=== PATIENT | male | born 1965 | race Caucasian/White ===

== ENCOUNTER 2019-11-08 07:20 | Emergency (ER) | payer OTHER, SELFPAY ==
--- NOTE | ~2019-11-08 | XR_ITS ---
EXAMINATION: XR chest 2V DATE: 11/08/2019 08:05 INDICATION: Chest pain TECHNIQUE: PA and lateral views of the chest are obtained. COMPARISON: 06/12/2017 FINDINGS: The lungs are free of acute opacities. There is no pleural effusion or pneumothorax. The ca rdiomediastinal silhouette is normal. There is mild thoracic spondylosis. Calcified pulmonary nodules and calcified right hilar lymph nodes are consistent with old granulomatous disease. IMPRESSION: 1. No acute cardiopulmonary abnormality. Reviewed, dictated and finalized at location A. 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
[2019-11-08 07:23] VITALS: BP 136/82; PULSE 51; RESP 19; TEMP 36.7; O2SAT 100
[2019-11-08 07:29] VITALS: O2SAT 100
--- NOTE | 2019-11-08 07:34 | ECG_ITS ---
Measurements Intervals [place] Rate: 54 P: 60 KS: 197 QRS: 30 QRSD: 113 T: 23 QT: 401 QTc: 381 Interpretive Statements SINUS BRADYCARDIA WITH SINUS ARRHYTHMIA INTRAVENTRICULAR CONDUCTION DELAY DELAYED PRECORDIAL R/S TRANSITION BASELINE ARTIFACT- I, II, III BORDERLINE ECG Electronically Signed On 11-08-2019 8:01:55 INSTRUMENT CHECKER by Yves Carrera D.O.
[2019-11-08 07:44] LABS: Basophils Absolute Auto 0.1 K/mm3 (0.0-0.1); Eosinophils Absolute Auto 0.3 K/mm3 (0-0.3); Eosinophils Percent Auto 3.6 % (0-4.4); Hematocrit 45.2 % (42.0-52.0); Hemoglobin 14.9 g/dL (14.0-18.0); Immature Granulocyte Absolute 0.05 K/mm3 (0.00-0.031); Immature Granulocyte Percent A 0.7 % (0-0.5); Lymphocytes Absolute Auto 3.19 K/mm3 (0.9-3.2); Lymphocytes Percent Auto 44.6 % (18.3-44.2); Mean Corpuscular Hemoglobin 30.8 pg (26-34); Mean Corpuscular Volume 93.6 fl (80-100); Mean Platelet Volume 8.8 fl (7.4-10.4); Monocytes Absolute Auto 0.7 K/mm3 (0.1-0.6); Monocytes Percent Auto 9.5 % (2.6-8.5); Neutrophils Absolute Auto 2.9 K/mm3 (1.3-6.7); Neutrophils Percent Auto 40.6 % (45.5-73.1); Platelet Count Result 358 k/mm3 (150-375); Red Blood Count 4.83 M/mm3 (4.6-6.20); Red Cell Distribution Width 12.5 % (11.5-14.5); White Blood Count 7.2 K/mm3 (4.5-10.0)
[2019-11-08 07:46] VITALS: BP 135/89; PULSE 51; RESP 13; O2SAT 97
[2019-11-08 07:55] LABS: INR 0.9
[2019-11-08 07:56] LABS: Partial Thromboplastin Time 28.6 SECONDS (22.3-36.8)
--- NOTE | 2019-11-08 08:04 | PC.NURSE ---
redraw sent to lab
--- NOTE | 2019-11-08 08:15 | ED.CHESTPAIN ---
HPI - Chest Pain General Chief Complaint: Chest Pain Stated Complaint: cp Time Seen by Provider: 11/08/19 07:44 Source: patient and RN notes reviewed Mode of arrival: ambulatory Limitations: no limitations History of Present Illness HPI narrative: Pt is a 53 y/o male with a Hx of angina and GERD, who presents to the ED with c/o lt sided chest pain starting around 6:30 AM this morning. He notes that he has had intermittent pain in the lt side of his chest for several weeks, stating that he was unable to perform a scheduled stress test 3 weeks ago due to his pain. Pt notes that he woke up around 6:30 AM this morning with pain in the lt side of his chest as well as severe posterior neck pain. He notes that he does have a Hx of several cervical spine fusions. He describes his chest pain as burning, and states that his pain radiated down his lt arm. Pt notes that he became nauseas and mildly short of breath shortly after his pain began. He currently rates his neck pain at 9/10, but notes that his chest pain is slightly alleviated currently. Pt states that he was scheduled to see his Fine Patcher at [facility] later this morning, but chose to come to the ED due to him not feeling well. MD complaint: chest pain Onset (ago): hour(s) (1.5) Onset: during rest Pain location: left chest Pain radiation: left arm Quality: burning Associated symptoms: nausea, dyspnea and other (posterior neck pain) Related Data Allergies Allergy/AdvReac Type Severity Reaction Status Date / Time No Known Allergies Allergy Verified 11/08/19 07:28 Review of Systems Review of Systems: Narrative: CONSTITUTIONAL: Denies fever, chills, or sweats. CARDIOVASCULAR: Reports lt sided chest pain radiating down lt arm. Denies palpitations or edema. RESPIRATORY: Denies cough. Reports dyspnea. GASTROINTESTINAL: Denies abdominal pain, vomiting, or diarrhea. Reports nausea. MUSCULOSKELETAL: Denies joint pain or myalgia. Reports posterior neck pain. All systems reviewed & are unremarkable except as noted in HPI and below PMFSH Past Medical History Medical History GERD (gastroesophageal reflux disease) History of angina HTN (hypertension) Inguinal hernia Neck pain Surgical History Surgical History Hx of fusion of cervical spine Hx of inguinal hernia repair Hx of repair of rotator cuff bilateral shoulders Social History Social History (Updated 11/08/19 @ 08:58 by Everette Collier) Smoking status: Former smoker Gender identity (if verbalized by the patient): Male Exam Narrative: Exam Narrative: GENERAL: Well-appearing, well-nourished, and in no acute distress. HEAD: Normocephalic, atraumatic. EYES: PERRLA and EOMI. ENT: Nares clear, no rhinorrhea or epistaxis. Mucous membranes moist. NECK: Supple. CHEST: Clear to auscultation. No respiratory distress. Reproducible pain over lt chest wall. HEART: Regular rate and rhythm. No murmur heard. Normal peripheral pulses. ABDOMEN: Soft, nontender, nondistended, normal active bowel sounds. EXTREMITIES: Normal range of motion. No edema. SKIN: Warm, dry, no rash. NEURO: No focal deficits. Alert and oriented. Course Consultations Consultation #1: Discussed case with internal control specialist on-call at [facility], Dr. Mckeon. Advised that if the second troponin is negative, he can follow-up as outpatient. He has a stress test scheduled. Date: 11/08/19 Time: 11:13 Vital Signs Vital signs: Vital Signs Temperature 36.7 C 11/08/19 07:23 Pulse Rate 51 L 11/08/19 07:23 Respiratory Rate 19 11/08/19 07:23 Blood Pressure 136/82 11/08/19 07:23 Pulse Oximetry 100 11/08/19 07:23 Temperature 36.7 C 11/08/19 07:23 Pulse Rate 51 L 11/08/19 07:46 Respiratory Rate 16 11/08/19 09:31 Blood Pressure 126/98 H 11/08/19 09:31 Pulse Oximetry 98 11/08/19 09:31 MDM - Chest Pain MDM Narrative Medical decision making narrat
[2019-11-08 08:19] LABS: Blood Urea Nitrogen 17 mg/dL (9-20); Calcium 9.2 mg/dL (8.4-10.2); Carbon Dioxide 27 mmol/L (22-30); Chloride 100 mmol/L (98-107); Estimated Glomerular Filt Rate > 60; Glucose 96 mg/dL (75-110); Potassium 3.9 mmol/L (3.4-5.0); Sodium 136 mmol/L (137-145)
[2019-11-08 08:30] LABS: Troponin I < 0.012 ng/mL (0.000-0.034)
[2019-11-08 08:56] VITALS: BP 132/48; RESP 47; O2SAT 99
[2019-11-08 09:31] VITALS: BP 126/98; RESP 16; O2SAT 98
[2019-11-08 11:36] LABS: Troponin I < 0.012 ng/mL (0.000-0.034)
[2019-11-08 11:56] VITALS: BP 133/97; PULSE 53; RESP 15; O2SAT 97
== END 2019-11-08 11:58 | disposition home or self-care (01) ==
PROVIDERS: Emergency Provider Emergency Medicine; PCP Family Medicine
DX: R07.89 Other chest pain (principal); K21.9 Gastro-esophageal reflux disease without esophagitis; I10 Essential (primary) hypertension; Z87.891 Personal history of nicotine dependence; R00.1 Bradycardia, unspecified; I45.9 Conduction disorder, unspecified
CPT/HCPCS: 36415; 71046; 80048; 84484; 85025; 85610; 85730; 93005; 99284

== ENCOUNTER → 2019-11-16 11:56 | Outpatient (CLI) | payer MEDICARE, MEDICAID, SELFPAY ==
--- NOTE | ~2019-11-16 | XR_ITS ---
XR chest 2V DATE: 11/16/2019 12:26 INDICATION: Right chest pain TECHNIQUE: 2 views COMPARISON: 11/08/2019 PA and lateral chest FINDINGS: Postoperative change from anterior and posterior cervical spine surgical fusion. Normal heart size. There are calcified right hilar nodes consistent with old pulmonary granulomatous disease. No pulmonary infiltrate or consolidation, pleural effusion or pulmonary vascular congestion or pneumothorax is detected. Diffuse idiopathic skeletal hyperostosis of the thoracic spine. Moderate osteopenia. IMPRESSION: No active cardiopulmonary disease Reviewed, dictated and finalized at location B. 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
== END ==
PROVIDERS: PCP Family Medicine; Visit Provider Family Medicine
DX: R09.1 Pleurisy (principal)
CPT/HCPCS: 71046

== ENCOUNTER → 2019-12-20 11:12 | Outpatient (CLI) | payer MEDICARE, MEDICAID, SELFPAY ==
--- NOTE | ~2019-12-20 | XR_ITS ---
EXAMINATION: XR chest 2V 12/20/2019 11:30 INDICATION: Productive cough PROCEDURE: 2 view chest COMPARISON: Comparison to multiple prior studies sequentially, with oldest reviewed study dated 05/24. FINDINGS: The lungs are clear. The cardiomediastinal silhouette is within normal limits. There are no pleural effusions. There is no pneumothorax suspected. IMPRESSION: 1: NO ACUTE CARDIOPULMONARY DISEASE. Reviewed, dictated and finalized at location A.
== END ==
PROVIDERS: PCP Family Medicine; Visit Provider Family Medicine
DX: J20.9 Acute bronchitis, unspecified (principal)
CPT/HCPCS: 71046

== ENCOUNTER 2020-04-27 17:11 | Outpatient (CLI) | payer MEDICARE, MEDICAID, SELFPAY ==
--- NOTE | ~2020-04-27 | XR_ITS ---
XR shoulder LT min 2V DATE: 04/27/2020 17:35 INDICATION: Bilateral posterior shoulder pain, radiating down arm TECHNIQUE: 4 views COMPARISON: None FINDINGS: Anterior and posterior cervical spine surgical fusion is noted. Degenerative spurring of th e thoracic spine. No fracture, dislocation, periosteal reaction or bone destruction or abnormal soft tissue calcificati on of the left shoulder. IMPRESSION: No significant abnormality of the left shoulder Reviewed, dictated and finalized at location A.
--- NOTE | ~2020-04-27 | XR_ITS ---
XR shoulder RT min 2V DATE: 04/27/2020 17:35 INDICATION: Bilateral posterior shoulder pain, radiating down the arms. TECHNIQUE: 4 views COMPARISON: None FINDINGS: No fracture, dislocation, periosteal reaction or bone destruction. Anterior and posterior surgical fusion of the cervical spine is incidentally noted, as well as calcif ied right hilar nodes. There is degenerative spurring of the thoracic spine. IMPRESSION: No significant abnormality of the right shoulder Anterior and posterior surgical fusion of the cervical spine, degenerative changes of thoracic spine Reviewed, dictated and finalized at location A. IMPRESSION: No significant abnormality of the right shoulder Anterior and posterior surgical fusion of the cervical spine, degenerative valle ges of thoracic spine
== END 2020-04-27 17:12 | disposition home or self-care (01) ==
LOC: ANHIMG 17:15
PROVIDERS: PCP Family Medicine; Visit Provider Nurse Practitioner Adult Health
DX: M25.511 Pain in right shoulder (principal); M25.512 Pain in left shoulder; Z98.1 Arthrodesis status
CPT/HCPCS: 73030

== ENCOUNTER 2020-04-28 07:44 | Outpatient (CLI) | payer MEDICARE, MEDICAID, SELFPAY ==
--- NOTE | ~2020-04-28 | MR_ITS ---
EXAMINATION: MR shoulder LT wo con DATE: 04/28/2020 08:41 INDICATION: Left shoulder pain. TECHNIQUE: Magnetic resonance imaging (MRI) of the left shoulder was performed without intravenous co ntrast. Sequences included axial PD-weighted FS FSE, coronal oblique PD-weighted FS FSE and T2-weight ed FS FSE, and sagittal oblique T2-weighted FS FSE and T1-weighted FSE. COMPARISON: Left shoulder radiographs 04/27/2020 FINDINGS: Coracoacromial arch: The acromion undersurface is curved in morphology (type II). There is moderate acromioclavicular join t osteoarthritis including inferiorly directed osteophytes. There is moderate subacromial/subdeltoid bursitis. Rotator cuff: There is a full-thickness tear of supraspinatus tendon measuring 4 mm anterior to posterior by 7 mm p roximal to distal. There is severe supraspinatus and infraspinatus tendinopathy. There is a small art icular sided partial-thickness tear of infraspinatus tendon at its distal insertion. Teres minor tend on is normal. There is mild subscapularis tendinopathy. There is no asymmetric fatty atrophy of the r otator cuff muscle bellies. Biceps tendon and glenoid labrum: Biceps tendon is in bicipital groove. There is a complete tear of proximal biceps tendon. There is de generation of the glenoid labrum without well-defined tear. Fluid: There is a small glenohumeral joint effusion. Bones/cartilage: There is cartilage surface irregularity of glenoid and humeral head. There are tiny osteophytes. IMPRESSION: 1. Severe rotator cuff tendinopathy with full-thickness tear of supraspinatus tendon and small articu lar sided partial-thickness tear of infraspinatus tendon. 2. Mild glenohumeral joint chondrosis. 3. Complete tear of proximal biceps tendon. 4. Moderate acromioclavicular joint osteoarthritis. 5. Moderate subacromial/subdeltoid bursitis and small glenohumeral joint effusion. Reviewed, dictated and finalized at location A. IMPRESSION: 1. Severe rotator cuff tendinopathy with full-thickness tear of supraspinatus t endon and small articular sided partial-thickness tear of infraspinatus tendon. 2. Mild glenohumeral joint chondrosis. 3. Complete tear of proximal biceps tendon. 4. Moderate acromioclavicular joint osteoarthritis. 5. Moderate subacromial/subdeltoid bursitis and small glenohumeral joint effusi on.
== END 2020-04-28 07:45 | disposition home or self-care (01) ==
PROVIDERS: PCP Family Medicine; Visit Provider Nurse Practitioner Adult Health
DX: M19.012 Primary osteoarthritis, left shoulder (principal); S46.212A Strain of muscle, fascia and tendon of other parts of biceps, left arm, initial encounter; X58.XXXA Exposure to other specified factors, initial encounter; M25.412 Effusion, left shoulder; M75.52 Bursitis of left shoulder
CPT/HCPCS: 73221

== ENCOUNTER 2020-06-06 16:48 | Outpatient (CLI) | payer MEDICARE, OTHER, MEDICAID, SELFPAY ==
--- NOTE | ~2020-06-06 | XR_ITS ---
EXAMINATION: XR chest 2V 06/06/2020 17:15 INDICATION: Right-sided chest pain PROCEDURE: 2 view chest COMPARISON: Comparison to multiple prior studies sequentially, with oldest reviewed study dated 10/2016. FINDINGS: The lungs are clear. The cardiomediastinal silhouette is within normal limits. There are no pleural effusions. There is no pneumothorax suspected. IMPRESSION: 1: NO ACUTE CARDIOPULMONARY DISEASE. Reviewed, dictated and finalized at location A.
== END 2020-06-06 16:49 | disposition home or self-care (01) ==
PROVIDERS: PCP Family Medicine; Visit Provider Family Medicine
DX: R07.89 Other chest pain (principal)
CPT/HCPCS: 71046

== ENCOUNTER 2020-06-07 10:23 | Outpatient (NON) | payer MEDICARE, OTHER, SELFPAY ==
[2020-06-08 14:10] LABS: SARS-CoV-2 RNA PCR Negative
== END 2020-06-07 10:24 ==
PROVIDERS: PCP Family Medicine; Visit Provider Family Medicine
DX: Z20.828 Contact with and (suspected) exposure to other viral communicable diseases (principal); B34.9 Viral infection, unspecified
CPT/HCPCS: 87635; C9803; U0003

== ENCOUNTER 2020-08-03 16:50 | Outpatient (CLI) | payer MEDICARE, OTHER, SELFPAY ==
--- NOTE | ~2020-08-03 | XR_ITS ---
EXAMINATION: XR chest 2V EXAM DATE: 08/03/2020 17:18 INDICATION: Acute bronchitis, congestion. TECHNIQUE: Frontal and lateral projections of the chest obtained and reviewed. Comparison is made to prior examination from 06/06/2020. FINDINGS: The lungs are clear. There are no pleural effusions. The cardiomediastinal silhouette is within normal limits. There is no pneumothorax suspected. Small to moderate-sized thoracic endplate osteophytes. Cervical fusion hardware. IMPRESSION: No acute cardiopulmonary findings. Reviewed, dictated and finalized at location A.
== END 2020-08-03 16:51 | disposition home or self-care (01) ==
LOC: ANHIMG 16:57
PROVIDERS: PCP Family Medicine; Visit Provider Family Medicine
DX: J20.9 Acute bronchitis, unspecified (principal)
CPT/HCPCS: 71046

== ENCOUNTER 2020-08-04 06:50 | Outpatient (NON) | payer MEDICARE, OTHER, SELFPAY ==
[2020-08-04 18:05] LABS: SARS-CoV-2 RNA PCR Negative
== END 2020-08-04 06:51 ==
LOC: ANHCOVIDDT 06:56
PROVIDERS: PCP Family Medicine; Visit Provider Family Medicine
DX: Z20.828 Contact with and (suspected) exposure to other viral communicable diseases (principal); B34.9 Viral infection, unspecified
CPT/HCPCS: 87635; C9803; U0003

== ENCOUNTER 2020-09-03 07:44 | Outpatient (CLI) | payer MEDICARE, OTHER, SELFPAY ==
--- NOTE | ~2020-09-03 | US_ITS ---
US right upper quadrant INDICATION: Right upper quadrant pain PROCEDURE: Realtime right upper abdominal ultrasound. COMPARISON: No prior studies for comparison. FINDINGS: The pancreas is normal without focal mass or pancreatic ductal dilation. Liver echotexture is normal without focal mass or intrahepatic biliary dilatation. There is normal directional flow i n the portal vein. The gallbladder is normal without stones, gallbladder wall thickening or pericholecystic fluid. Comm on bile duct measures 4.6 mm. No sonographic Garcia's sign. IMPRESSION: 1: Normal limited abdominal ultrasound. Reviewed, dictated and finalized at location A. 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
== END 2020-09-03 07:45 | disposition home or self-care (01) ==
PROVIDERS: PCP Family Medicine; Visit Provider Family Medicine
DX: R10.11 Right upper quadrant pain (principal)
CPT/HCPCS: 76705

== ENCOUNTER 2021-02-15 09:00 | Outpatient (RCR) | payer MEDICARE, OTHER, SELFPAY ==
--- NOTE | 2021-01-18 15:30 | PTOPEVAL ---
PHYSICAL THERAPY EVALUATION Thank you for referring Cristobal Mcpherson to [facility].? Bharath was evaluated with the dx of cervical fusion/pain. The patient is scheduled to be seen for therapy?2 x/week for 4 weeks. Please review, sign, date and return this plan of care HEAVEN. I agree with and certify that the following plan of care is medically necessary. 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 Pt has another MRI for his low back on January 27. Pt had headaches and tavo. shoulder pain prior to recent surgery and since surgery the pain is at neck and to the right scapular area. The patient feels a knot that is painful, at cervical area. The pt use to golf and MD says its ok but is concerned about injurying himself playing. The pt also has a hx of RTC problem on both sides. The pt takes care of the yard and BBQ's at home. Subjective Information The rides a bicycle for Query Text:As Reported By Patient/ exercise approx. 18 miles a Family day and tolerates the ride fairly well. Pain Assessment Timing of Pain Assessment Timing of Pain Assessment Assessment Pain Scale Pain Scale Used Numeric (1 - 10) Self Report Pain Assessment Neck Reported Pain Level 7 Pain Description Burning,Soreness Pain Radiation Right Shoulder Pain Frequency Acute,Chronic Pain Aggravating Factors Lifting Other Pain Aggravating Factors driving, looking down, looking up, turning head Pain Score Pain Score 7: Self Report Interventions Used Interventions Used By Clinicians Education,Manual Therapy Techniques Pain Relief Interventions Used By Ice,Inactivity/Rest Patient
--- NOTE | 2021-01-31 16:48 | PCPTNOTE ---
Patient did not show to appointment. Patient was called and states his wrote the wrong time. Rescheduled for 02/01/21.
--- NOTE | 2021-02-15 09:50 | PTOPEVAL ---
PHYSICAL THERAPY DISCHARGE Thank you for referring Cristobal Mcpherson to [facility].? The patient has completed 9 visits for the dx of cervical fusion. Goals are partially met and skilled PT peaked. DC PT for his neck. Please review, sign, date and return this plan of care. I agree with and certify the following plan of care. Referring Physician Date Referring Provider: MD Chente Narvaez *PT Outpatient Discharge Start: 01/18/21 14:31 Freq: Status: Active Protocol: Document 02/15/21 09:07 MLV (Rec: 02/15/21 09:46 [email or web address] [email or web address]) Therapy Assessment Status Assessment Status Assessment Status Discharge Evaluation Information Problem Diagnosis cervical fusion C3-C4; Oct 29, 2020 Cause no injury Additional Evaluation Detail Patient feels he is much looser than when he started therapy and hasn't had many headaches. Patient is riding his bike regularly and has minimal soreness/stiffness at his neck the next AM. The patient has a follow up with the MD in a while. Patient has no trouble with current HEP. Pt still has trouble sleeping and feels he might need a new pillow. Pain Assessment Timing of Pain Assessment Timing of Pain Assessment Assessment Pain Scale Pain Scale Used Numeric (1 - 10) Self Report Pain Assessment Neck Reported Pain Level 7 Pain Description Soreness,Tightness Pain Frequency Acute,Chronic Pain Aggravating Factors Exercise/Activity,Prolonged Position Pain Behaviors None Pain Score Pain Score 7: Self Report Interventions Used Interventions Used By Clinicians Education,Electrical Stimulation,Exercise,Heat, Manual Therapy Techniques Pain Relief Interventions Used By Exercise,Ice Patient Other Alleviating Interventions ibuprofen Cervical and Lumbar ROM Cervical ROM Cervical Flexion (0-60) 42 Query Text:Active in Degrees Cervical Extension (0-70) 29 Query Text:Active in Degrees Cervical Lateral Flexion Right (0-50) 24 Query Text:Active in Degrees Cervical Lateral Flexion Left (0-50) 30 Query Text:Active in Degrees Cervical Rotation Right (0-90) 62 Query Text:Active in Degrees Cervical Rotation Left (0-90) 49 Query Text
== END 2021-02-21 08:17 | disposition home or self-care (01) ==
LOC: ANHPT 09:00
PROVIDERS: PCP Family Medicine
DX: M47.22 Other spondylosis with radiculopathy, cervical region (principal)
CPT/HCPCS: 97014; 97110; 97140; 97162; G0283

== ENCOUNTER 2021-02-25 13:47 | Emergency (ER) | payer MEDICARE, OTHER, SELFPAY ==
[2021-02-25 13:57] VITALS: BP 126/78; PULSE 58; RESP 18; TEMP 36.2; O2SAT 99
--- NOTE | 2021-02-25 14:06 | ED.SKABFB ---
HPI - Skin/Abscess/Foreign Bdy General Chief complaint: Skin/Abscess/Foreign Body Stated complaint: Insect Bite Time Seen by Provider: 02/25/21 14:07 Source: patient and RN notes reviewed Mode of arrival: ambulatory Limitations: no limitations History of Present Illness HPI narrative: 55-year-old male presents with concern for possible insect bite. Reports he noticed a bump on his chest after a bike ride this morning. The bump was not there last night when he showered. Reports the bump is mildly tender to touch, denies itching. Denies known insect bite or injury. Denies surrounding redness, swelling. Reports small amount of itching on his right lower back, denies other rash. MD complaint: insect bite/sting Related Data Home Medications Medication Instructions Recorded Confirmed albuterol 02/25/21 amlodipine 02/25/21 amlodipine 02/25/21 montelukast mg 02/25/21 omeprazole 02/25/21 tamsulosin mg PO 02/25/21 tizanidine mg 02/25/21 valsartan 02/25/21 Allergies Allergy/AdvReac Type Severity Reaction Status Date / Time No Known Allergies Allergy Verified 02/25/21 14:11 Review of Systems Review of Systems: Narrative: CONSTITUTIONAL: Denies malaise, chills, sweats, or fever. EYES: Denies visual changes, redness, or discharge. ENT: Denies swollen lips, swollen tongue, trouble swallowing CARDIOVASCULAR: Denies chest pain, palpitations, or edema. RESPIRATORY: Denies cough or dyspnea. GASTROINTESTINAL: Denies abdominal pain, nausea, vomiting SKIN: Reports a red bump on his right-sided chest MUSCULOSKELETAL: Denies myalgia. All systems reviewed & are unremarkable except as noted in HPI and below [facility] Past Medical History Medical History (Updated 02/25/21 @ 14:15 by Rachel Nicole NP) GERD (gastroesophageal reflux disease) History of angina HTN (hypertension) Inguinal hernia Neck pain Surgical History Surgical History Hx of fusion of cervical spine Hx of inguinal hernia repair Hx of repair of rotator cuff bilateral shoulders Social History Social History (Updated 11/08/19 @ 08:58 by Everette Collier) Smoking status: Former smoker Gender identity (if verbalized by the patient): Male Comments At time of signature, agree with nursing past medical, surgical, social and family history. There is no relevant family history pertinent to the presenting complaint Exam Narrative: Exam Narrative: GENERAL: Well-appearing, well-nourished, and in no acute distress. HEAD: Normocephalic, atraumatic. EYES: PERRLA, conjunctivae clear, and EOMI. ENT: Mucous membranes moist. Oropharynx without edema, erythema or lesions. NECK: Supple. No lymphadenopathy CHEST: Clear to auscultation. No respiratory distress. HEART: Regular rate and rhythm. SKIN: Warm, dry. 3 cm mildly erythematous soft wheal noted to the right upper chest, no surrounding erythema, induration, edema. No other rash noted NEURO: Alert and oriented x3. PSYCH: Normal mood and affect Course Course Emergency Course: Patient is aware of diagnosis, understands and agrees to treatment plan. Anticipatory guidance given. Patient agrees to follow-up as directed and is aware of reasons to seek care at the emergency department. Portions of this record may have been created with voice recognition software Vital Signs Vital signs: Reviewed. MDM - Skin/Abscess/Foreign Bdy MDM Narrative Medical decision making narrative: Exam findings show no acute concerns or changes; patient is non-toxic appearing and is in no distress. Patient is appropriate for outpatient treatment and follow-up. Differential Diagnosis Differential diagnosis: Likely abscess of skin or subcutaneous tissue, cellulitis, insect bites, impetigo and contact dermatitis Critical Care Time Critical Care Time Critical Care Time: No Discharge Plan Discharge Clinical Impression: Localized skin eruption Patient Disposition: Home, S
== END 2021-02-25 14:19 | disposition home or self-care (01) ==
PROVIDERS: Emergency Provider Nurse Practitioner; PCP Family Medicine
DX: R21 Rash and other nonspecific skin eruption (principal); K21.9 Gastro-esophageal reflux disease without esophagitis; I10 Essential (primary) hypertension; I25.10 Atherosclerotic heart disease of native coronary artery without angina pectoris; Z87.891 Personal history of nicotine dependence
CPT/HCPCS: 99213; G0463

== ENCOUNTER 2021-03-28 09:30 | Outpatient (RCR) | payer MEDICARE, OTHER, SELFPAY ==
--- NOTE | 2021-02-22 13:45 | PTOPEVAL ---
PHYSICAL THERAPY EVALUATION AND PLAN OF CARE Thank you for referring Cristobal Mcpherson to [facility] for treatment of chronic low back pain.? The patient is scheduled to be seen for therapy? 2xx/week for 4-8 weeks. Please review, sign, date and return this plan of care HEAVEN. I agree with and certify that the following plan of care is medically necessary. Referring Physician Date Referring Provider: Tim Hawk MD Ray Evaluation Outpatient Past Medical History Cardiovascular History Hx Hypercholesterolemia Yes Hx Hypertension Yes Respiratory History Hx Asthma Yes Hx Chronic Obstructive Pulmonary Disease Yes (COPD) Gastrointestinal History Hx Hernia Yes Musculoskeletal History Hx Arthritis Yes Hx Spinal Surgery Yes: cervical fusion 12/25, repair of cervical fusion 02/26 ; Diagnosis lumbar spine pain; spondylosis Onset 2016 Subjective Information Reports a chronic history of Query Text:As Reported By Patient/ back pain since 2016. he has Family been working on exercises and trying to lose weight to help his back, but notes that he now experiencing numbness and tingling in the right leg down to the foot that occurs especially when driving for prolonged periods or in both feet when riding his back. Also states that he is experiencing right hip pain. As for the back specifically he reports constant pain that worsens depending on activity. He is trying to avoid surgery and is open to trying to make symptoms improve. of note: patient was recently discharged from therapy for rehabilitation after cervical fusion Self Report Pain Assessment Bilateral Spine, Lumbar Reported Pain Level 6 Pain Description Aching,Burning Pain Frequency Chronic,Continuous Greatest Pain Intensity 9 Pain Aggravating Factors Exercise/Activity,Lifting, Sitting,Walking,Weight Bearing /Standing Pain Behaviors Guarding Pain Score Pain Score 6: Self Report Interventions Used Interventions Used
--- NOTE | 2021-03-28 10:17 | PTOPEVAL ---
PHYSICAL THERAPY DISCHARGE NOTE Thank you for referring Cristobal Mcpherson to [facility].? Cristobal is independent with HEP and requires no further supervision. He demonstrates 5/5 strength of LE and continuously improving lower abdominal motor control. I recommend discharge from skilled PT at this time. Please review, sign, date and return this discharge HEAVEN. I agree with and certify that the following plan of care is medically necessary. Referring Physician Date Referring Provider: Tim Hawk MD Ray Diagnosis lumbar spine pain; spondylosis Onset 2016 Cause no injury Subjective Information States that he hopes there is Query Text:As Reported By Patient/ progress. States that he feels Family better sometimes and worse sometimes. Self Report Pain Assessment Bilateral Spine, Lumbar Reported Pain Level 7 Pain Description Aching,Burning Pain Frequency Chronic,Continuous Pain Aggravating Factors Exercise/Activity,Lifting, Sitting,Walking,Weight Bearing /Standing Pain Behaviors Guarding Interventions Used Interventions Used By Clinicians Exercise,Heat,Manual Therapy Techniques Pain Relief Interventions Used By Ice,Medication Patient Other Alleviating Interventions ibuprofen Cervical and Lumbar ROM Lumbar ROM Lumbar Flexion (0-90) 50 Query Text:Active in Degrees Lumbar Flexion Active Mid [place],Ankle Query Text:Hands to: Lumbar Extension (0-40) 20 Query Text:Active in Degrees Lateral Flexion right: to lateral knee Query Text:Active Hands to: left: to lateral knee Lower Extremity Muscle Strength Testing Hip Strength Bilateral Hip Flexion Strength 5 Normal Hip Extension Strength 5 Normal Hip Abduction Strength 5 Normal Knee Strength Bilateral Knee Flexion Strength 5 Normal Knee Extension Strength 5 Normal Ankle Strength Bilateral Ankle Dorsiflexion Strength 5 Normal Muscle Length Testing Muscle Length Testing Pectoralis Major Muscle Length (R) Mild Tightness,(L) Mild Tightness Juan C Test Shortened Muscles Short (R) Iliopsoas,Short (L) Iliopsoas Right Straight Leg Raise Muscle Length ( 80 degrees) Left Straight Leg Raise Muscle Length ( 80 degrees) Left Hamstring Length -10 Query Text:(90 - 90 Position) Right Hamstring Length -10 Query Text:(90 - 90 Position) Palpation improved stiffness of thoracic and lumbar spine and rib case
== END 2021-03-29 09:19 | disposition home or self-care (01) ==
LOC: ANHPT 09:30
PROVIDERS: PCP Family Medicine
DX: M47.22 Other spondylosis with radiculopathy, cervical region (principal); M47.816 Spondylosis without myelopathy or radiculopathy, lumbar region
CPT/HCPCS: 97014; 97110; 97140; 97162; 97530; G0283

== ENCOUNTER 2021-06-20 08:30 | Emergency (ER) | payer MEDICARE, OTHER, SELFPAY ==
[2021-06-20 08:40] VITALS: BP 146/73; PULSE 52; RESP 16; TEMP 35.9; O2SAT 100
--- NOTE | 2021-06-20 08:40 | ED.URI ---
HPI - URI/Sore Throat General Chief Complaint: Upper Respiratory Infection Stated Complaint: Congestion,Sore Throat Source: patient and RN notes reviewed Limitations: no limitations History of Present Illness HPI Narrative: The vaccinated patient, an ex-smoker/occasional drinker, presents with splinter, scratchy sore throat. Patient indicates he sustained a minor splinter underneath his index finger nail; symptoms are mild, worse with motion, better at rest. Patient also states he has about 1/2-week history since the weekend of scratchy sore throat, slightly productive cough. No fever, earache, loss of taste/smell, chest pain, vomiting/diarrhea, S OB. Symptoms are mild, worse upon awakening this morning. Related Data Home Medications Medication Instructions Recorded Confirmed amlodipine 2.5 mg PO DAILY 02/25/21 06/20/21 montelukast 10 mg PO DAILY 02/25/21 06/20/21 omeprazole 40 mg PO DAILY 02/25/21 06/20/21 tamsulosin 0.4 mg PO DAILY 02/25/21 06/20/21 tizanidine 4 mg PO DAILY 02/25/21 06/20/21 valsartan 160 mg PO DAILY 02/25/21 06/20/21 aspirin 81 mg PO DAILY 06/20/21 06/20/21 gabapentin 300 mg PO DAILY 06/20/21 06/20/21 oxybutynin chloride 5 mg PO DAILY 06/20/21 06/20/21 zolpidem 10 mg PO DAILY 06/20/21 06/20/21 Allergies Allergy/AdvReac Type Severity Reaction Status Date / Time No Known Allergies Allergy Verified 06/20/21 08:37 Review of Systems Review of Systems: General/Constitutional: No weight loss,fever Eyes: N0: Redness,discharge Ears/Nose/Throat: No: Epistaxis,ear discharge Respiratory: Denies: Hemoptysis Gastrointestinal: No Vomiting, Bleeding-rectal Skin: No Lumps, eruption Neurologic: No Focal Weakness,Sz Hematologic: Denies: Petechiae/Purpura Psychiatric: No: Suicida ideationl All Other Systems: Reviewed and Negative [facility] Past Medical History Medical History (Updated 06/20/21 @ 09:20 by Cyrus Merchant MD) GERD (gastroesophageal reflux disease) History of angina HTN (hypertension) Inguinal hernia Neck pain Surgical History Surgical History Hx of fusion of cervical spine Hx of inguinal hernia repair Hx of repair of rotator cuff bilateral shoulders Social History Social History (Updated 11/08/19 @ 08:58 by Everette Collier) Smoking status: Former smoker Gender identity (if verbalized by the patient): Male Comments At time of signature, agree with nursing past medical, surgical, social and family history. There is no relevant family history pertinent to the presenting complaint Exam Narrative: General Appearance: Well appearing, Well nourished Skin: Warm, Dry, with small splinter under left ring finger EYE: PERRLA, Conjunctiva clear Ears: Auditory canal normal, TM normal Nose: Rhinorrhea, Mucousal erythema Mouth/Throat: MM moist, Uvula midline, Pharyngeal erythema Neck: Supple, No adenopathy Respiratory: No respiratory distress, Breath sounds equal, Clear to auscultation Cardiovascular: RRR, No JVD Musculoskeletal: Non tender, Normal strength Neurological: A&O x3, CN II-XII intact Psychiatric: Normal mood, Normal affect Course Vital Signs Vital signs: Vital Signs Temperature 96.7 F L 06/20/21 08:40 Pulse Rate 52 L 06/20/21 08:40 Respiratory Rate 16 06/20/21 08:40 Blood Pressure 146/73 H 06/20/21 08:40 Pulse Oximetry 100 06/20/21 08:40 Temperature 96.7 F L 06/20/21 08:58 Pulse Rate 52 L 06/20/21 08:58 Respiratory Rate 16 06/20/21 08:58 Blood Pressure 146/73 H 06/20/21 08:58 Pulse Oximetry 100 06/20/21 08:58 Procedures Foreign Body Removal Foreign Body #1: Foreign Body Removal Date: 06/20/21 Time Out Performed: yes Site: left and hand (finger) Description of foreign body: other (splinter) Sedation/Analgesia: other Confirmed by:: direct visualization Complications: none Neurovascular: normal distal pulse
[2021-06-20 08:58] VITALS: BP 146/73; PULSE 52; RESP 16; TEMP 35.9; O2SAT 100
== END 2021-06-20 09:26 | disposition home or self-care (01) ==
PROVIDERS: Emergency Provider Emergency Medicine; PCP Family Medicine
DX: J02.9 Acute pharyngitis, unspecified (principal); S61.235A Puncture wound without foreign body of left ring finger without damage to nail, initial encounter; W45.8XXA Other foreign body or object entering through skin, initial encounter; Z20.822 Contact with and (suspected) exposure to COVID-19; K21.9 Gastro-esophageal reflux disease without esophagitis; I10 Essential (primary) hypertension; Z87.891 Personal history of nicotine dependence
CPT/HCPCS: 87426; 99213; C9803; G0463

== ENCOUNTER → 2021-06-21 02:51 | Outpatient (CLI) | payer MEDICARE, OTHER, SELFPAY ==
[2021-06-21 18:57] LABS: SARS-CoV-2 RNA PCR Negative
== END ==
PROVIDERS: PCP Family Medicine; Visit Provider Emergency Medicine
DX: Z20.822 Contact with and (suspected) exposure to COVID-19 (principal)
CPT/HCPCS: C9803; U0003; U0005

== ENCOUNTER 2021-08-14 07:30 | Outpatient (RCR) | payer MEDICARE, OTHER, SELFPAY, MEDICAID ==
--- NOTE | 2021-06-11 15:59 | PTOPEVAL ---
Thank you for referring Cristobal Mcpherson to [facility].? The patient is scheduled to be seen for therapy?1 visit every other week for 4 additional visits. Please review, sign, date and return this plan of care HEAVEN. I agree with and certify that the following plan of care is medically necessary. Referring Physician Date Attending Provider: Radha Stout, EXPLORATION DRILLER Diagnosis neck pain Onset chronic Additional Evaluation Detail This is pt's 3rd referral to therapy in 2020 to address neck and back issues. Subjective Information Pt states he is performing his Query Text:As Reported By Patient/ HEP 5-7x/wk at least 1x/day. Family He c/o pain when attempting to throw a ball, but painful. He attempted to play golf with increased pain. He is not riding his bike as often due to weather and time. He c/o increased pain with cutting grass and using the weed-eater. He goes to the gym 1-2x/wk for the eliptical for 1 hr. He uses ice to manage his pain and tightness. Pain Assessment Self Report Pain Assessment Neck Reported Pain Level 7 Pain Description Aching,Burning,Tightness Pain Frequency Chronic,Continuous Lowest Pain Intensity 7 Greatest Pain Intensity 8 Pain Aggravating Factors Exercise/Activity Pain Score Pain Score 7: Self Report Interventions Used Interventions Used By Clinicians Education,Exercise Pain Relief Interventions Used By Ice Patient Cervical and Lumbar ROM Cervical ROM Cervical Flexion (0-60) 40:Active in Degrees Cervical Extension (0-70) 50Active in Degrees Cervical Lateral Flexion Right (0-50) 18Active in Degrees Cervical Lateral Flexion Left (0-50) 16Active in Degrees Cervical Rotation Right (0-90) 55Active in Degrees Cervical Rotation Left (0-90) 54Active in Degrees Cervical ROM Comments pain with all motions Upper Extremity Muscle Strength Testing General Upper Extremity Strength Gross Upper Extremity Strength Comments middle trap: 4/5, lower trap: 4-/5 Muscle Length Testing Muscle Length Testing Latissmus Dorsi Muscle Length (R) Moderate Tightness,(L) Moderate Tightness Teres Major Muscle Length (R) Mild Tightness,(L) Mild Tightness Pectoralis Minor Muscle Length (R) Moderate Tightness,(L)
--- NOTE | 2021-07-22 10:10 | PCPTNOTE ---
Patient called & cancelled scheduled appointment this date due to forgot about visit. Next visit on 08/06.
--- NOTE | 2021-08-14 10:36 | PTOPEVAL ---
Physical Therapy Discharge Summary Thank you for referring Cristobal Mcpherson to [facility].?Cristobal has attended 4 therapy visits from 06/11/21 to 08/14/21. He has reached maximal potential with skilled therapy services at this time. See summary below for objective measures of function. He level of function can be maintained with his HEP. He he has partially achieved his therapy goals at this time. Will DC skilled therapy services at this time. Please review, sign, date and return this plan of care HEAVEN. I agree with and certify that the following plan of care is medically necessary. Referring Physician Date Attending Provider: Radha Stout, BUTTON RECLAIMER Diagnosis neck pain Onset chronic Additional Evaluation Detail This is pt's 3rd referral to therapy in 2020 to address neck and back issues. Subjective Information Pt states he is performing his Query Text:As Reported By Patient/ HEP daily of 1x/day. He cont Family to c/o pain which has not changed with therapy. He has not had the chance to play golf or throw a ball. He c/o increased pain with cutting grass and using the weedeater. He limits his activities due to increased pain with riding bike, throwing or increased performance of HEP. He is taking gabapenten with improved nerve symptoms. Pain Assessment Self Report Pain Assessment Neck Reported Pain Level 7 Pain Description Aching,Burning,Soreness Pain Frequency Chronic,Continuous Lowest Pain Intensity 6 Greatest Pain Intensity 8 Cervical and Lumbar ROM Cervical ROM Cervical Flexion (0-60) 45:Active in Degrees Cervical Extension (0-70) 50:Active in Degrees Cervical Lateral Flexion Right (0-50) 18:Active in Degrees Cervical Lateral Flexion Left (0-50) 15:Active in Degrees Cervical Rotation Right (0-90) 48:Active in Degrees Cervical Rotation Left (0-90) 45:Active in Degrees Cervical ROM Comments pain with all motions Palpation Assessment Palpation Palpation pain with mild pressure to scalene post and SCM mild pain and tightness noted on upper/middle trap no tenderness of suboccipital region and scapular region. PT Clinical Summary Pt referred to therapy due to chronic neck pain. He has received multiple bouts of
== END 2021-08-14 12:01 | disposition home or self-care (01) ==
LOC: ANHPT 07:30
PROVIDERS: PCP Family Medicine; Visit Provider Nurse Practitioner Gerontology
DX: M47.22 Other spondylosis with radiculopathy, cervical region (principal)
CPT/HCPCS: 97110; 97162

== ENCOUNTER → 2021-10-21 10:47 | Outpatient (CLI) | payer OTHER, SELFPAY ==
[2021-10-21 20:23] LABS: SARS-CoV-2 RNA PCR Negative
== END ==
PROVIDERS: PCP Physician Assistant; Visit Provider Physician Assistant
DX: R68.89 Other general symptoms and signs (principal); Z20.822 Contact with and (suspected) exposure to COVID-19
CPT/HCPCS: C9803; U0003; U0005

== ENCOUNTER 2021-11-04 15:34 | Outpatient (CLI) | payer OTHER, SELFPAY ==
--- NOTE | ~2021-11-04 | XR_ITS ---
XR chest 2V DATE: 11/04/2021 16:00 INDICATION: Chest congestion for one week. No cardiac history. TECHNIQUE: PA and lateral views COMPARISON: 08/03/2020 PA and lateral chest FINDINGS: Borderline heart size. No hilar or mediastinal enlargement. No pulmonary infiltrate or cons olidation, pleural effusion or pulmonary vascular congestion or pneumothorax. Probable small hiatal hernia. Anterior and posterior cervical spine surgical fusion. Degenerative spurring of the thoracic spine. IMPRESSION: Borderline heart size. No active pulmonary disease Reviewed, dictated and finalized at location A. HERS AIDE
== END 2021-11-04 15:35 | disposition home or self-care (01) ==
PROVIDERS: PCP Physician Assistant; Visit Provider Physician Assistant
DX: U07.1 COVID-19 (principal)
CPT/HCPCS: 71046

== ENCOUNTER 2022-01-22 19:17 | Emergency (ER) | payer OTHER, SELFPAY ==
[2022-01-22 19:26] VITALS: BP 136/62; PULSE 51; RESP 16; TEMP 36.6; O2SAT 100
--- NOTE | 2022-01-22 19:31 | ED.LOWEXIN ---
HPI - Extremity Injury (Lower) General Chief Complaint: Extremity Injury, Lower Stated Complaint: left heel pain Time Seen by Provider: 01/22/22 19:30 Source: patient Mode of arrival: ambulatory Limitations: no limitations History of Present Illness HPI Narrative: Mr. Mcpherson is a 56-year-old male patient presenting to the clinic today with complaints of left heel pain that has gradually gotten worse over the last week. He reports that he injured it a couple weeks ago when playing basketball. States pain is to the left heel near the plantar fascia tendon. Reports that the pain is sharp when he is walking on it. Pain does not radiate into the back of his heel. No swelling noted Related Data Home Medications Medication Instructions Recorded Confirmed amlodipine 2.5 mg PO DAILY 02/25/21 06/20/21 omeprazole 40 mg PO DAILY 02/25/21 06/20/21 tizanidine 4 mg PO DAILY 02/25/21 06/20/21 valsartan 160 mg PO DAILY 02/25/21 06/20/21 aspirin 81 mg PO DAILY 06/20/21 06/20/21 gabapentin 300 mg PO DAILY 06/20/21 06/20/21 oxybutynin chloride 5 mg PO DAILY 06/20/21 06/20/21 zolpidem 10 mg PO DAILY 06/20/21 06/20/21 Allergies Allergy/AdvReac Type Severity Reaction Status Date / Time No Known Allergies Allergy Verified 06/20/21 08:37 Review of Systems Review of Systems: Pertinent positives per HPI. Patient denies any fever, chills, rash, headache, visual changes, dizziness, cough, runny nose, sore throat, shortness of breath, chest pain, palpitations, nausea, vomiting, diarrhea, constipation, abdominal pain, or any urinary issues. [facility] Past Medical History Medical History GERD (gastroesophageal reflux disease) History of angina HTN (hypertension) Inguinal hernia Neck pain Surgical History Surgical History Hx of fusion of cervical spine Hx of inguinal hernia repair Hx of repair of rotator cuff bilateral shoulders Social History Social History Smoking status: Former smoker Gender identity (if verbalized by the patient): Male Comments At the time of my signature, I reviewed and agree with the nursing past medical, surgical, social, and family history. There is no relevant family history pertinent to the patient complaint. Exam Narrative: General: Well-developed, well nourished, in no apparent distress Head: Normocephalic, atraumatic. Cardio: Regular rate and rhythm, s1 and s2 normal, no murmur appreciated. Resp: Clear to auscultation bilaterally, no rhonchi, rales, wheezing or rubs. Musculoskeletal: No deformity, tenderness to palpation over the plantar fascia and front of the left heel, pain over the plantar fascial tendon with dorsal flexion, grossly normal range of motion, muscle strength strong and equal, peripheral pulse strong, no edema, no cyanosis, normal gait and station Course Course Emergency Course: Portions of this record may have been created with voice recognition software. Level of Care: Express Care Visit Vital Signs Vital signs: Vital Signs Temperature 36.6 C 01/22/22 19:26 Pulse Rate 51 L 01/22/22 19:26 Respiratory Rate 16 01/22/22 19:26 Blood Pressure 136/62 01/22/22 19:26 Pulse Oximetry 100 01/22/22 19:26 Temperature 36.6 C 01/22/22 19:26 Pulse Rate 51 L 01/22/22 19:26 Respiratory Rate 16 01/22/22 19:26 Blood Pressure 136/62 01/22/22 19:26 Pulse Oximetry 100 01/22/22 19:26 Vital signs reviewed MDM - Extremity Injury (Lower) MDM Narrative Medical decision making narrative: At the time of assessment patient is resting comfortably in the exam chair. Reports pain to the plantar fascia of the left foot mostly when walking and stretching. I suspect plantar fasciitis and supportive measures/treatment recommendations given to patient. He voiced understanding of instructions.
== END 2022-01-22 19:38 | disposition home or self-care (01) ==
PROVIDERS: Emergency Provider Nurse Practitioner Family; PCP Student in an Organized Health Care Education/Training Program
DX: M72.2 Plantar fascial fibromatosis (principal); Z87.891 Personal history of nicotine dependence; K21.9 Gastro-esophageal reflux disease without esophagitis; I20.9 Angina pectoris, unspecified; I10 Essential (primary) hypertension
CPT/HCPCS: 99213; G0463

== ENCOUNTER 2022-09-09 08:32 | Observation (INO) | payer MEDICARE, OTHER, SELFPAY ==
[2022-09-09] VITALS (17 sets, daily range): BP systolic 103–162; BP diastolic 60–89; PULSE 40–87; RESP 16; TEMP 36.1–36.7; O2SAT 95–100; BMI 28.0
--- NOTE | ~2022-09-09 | US_ITS ---
EXAMINATION: US carotid duplex BI DATE: 09/09/2022 13:42 INDICATION: Dizziness. TECHNIQUE: Grayscale, color Doppler, and pulsed Doppler images of the cervical carotid arteries were obtained. The degree of vessel stenosis is placed in one of the following categories: normal, <50%, 5 0-69%, >=70% but less than near-occlusion, near-occlusion, or total occlusion. Note that percent sten osis relative to normal distal artery lumen diameter is indirectly measured from velocity measurement s as described by Manuelito, et al. Radiology 2003; 229:340-346. COMPARISON: Ultrasound 05/25/17 FINDINGS: RIGHT: The right common carotid artery (CCA) peak systolic velocity (PSV) is 105 cm/s. The right internal ca rotid artery (ICA) PSV is 67 cm/s. The right ICA end-diastolic velocity (EDV) is 23 cm/s. The right I CA/CCA PSV ratio is 0.6. Grayscale and color Doppler images yield an estimate of <50% diameter reduct ion from plaque in the ICA. There is antegrade flow in the right vertebral artery. LEFT: The left CCA PSV is 158 cm/s. The left ICA PSV is 54 cm/s. The left ICA EDV is 18 cm/s. The left ICA/ CCA PSV ratio is 0.3. Grayscale and color Doppler images yield an estimate of <50% diameter reduction from plaque in the ICA. There is antegrade flow in the left vertebral artery. IMPRESSION: 1. <50% stenosis in the right internal carotid artery. 2. <50% stenosis in the left internal carotid artery. Reviewed, dictated and finalized at location A. OFF WORKER
--- NOTE | ~2022-09-09 | NM_ITS ---
NM stress w perf spect multi Procedure: The patient was stressed using Modified Jose protocol. Prior to the end of exercise 31.5 mCi Tc 99m IV administered. Rest imaging performed following administration of 9.8 mCi Tc 99m IV. Images were reformatted into short axis, horizontal and vertical long axis sections for visual and qu antitative analysis. Indication: Chest pain Comparison: None Findings: Computer assisted qualitative and quantitative analysis of the immediate and delayed images revealed normal left ventricular perfusion without evidence of fixed or reversible perfusion abnorma lity to suggest ischemia or infarction. Normal left ventricular cavity size, wall motion and ejectio n fraction. There is mild left ventricular dilation. Left ventricular ejection fraction measures 54%. Impression: 1: No scintigraphic evidence of resting or stress induced perfusion abnormality. 2: Mildly dilated left ventricle with diminished ejection fraction measuring 54% Reviewed, dictated and finalized at location A. ETIC LOCATER Impression: 1: No scintigraphic evidence of resting or stress induced perfusion abnormality . 2: Mildly dilated left ventricle with diminished ejection fraction measuring 54 %
--- NOTE | ~2022-09-09 | XR_ITS ---
EXAMINATION: XR chest 2V DATE: 09/09/2022 09:18 INDICATION: Chest pain. TECHNIQUE: Frontal and lateral views of the chest were obtained. COMPARISON: Chest 2 views 11/04/2021 FINDINGS: Calcified right lung nodules and calcified right hilar lymph nodes are consistent with old granulomatous disease. There is mild atelectasis at left lung base. No pleural effusion or pneumothor ax. The heart size is normal. There are changes of anterior fusion procedure in cervical spine. IMPRESSION: 1. Mild atelectasis at left lung base. Reviewed, dictated and finalized at location A. OBIAL SPECIALIST
--- NOTE | 2022-09-09 08:33 | ECG_ITS ---
Measurements Intervals [place] Rate: 56 P: 22 WI: 196 QRS: 16 QRSD: 95 T: 40 QT: 381 QTc: 368 Interpretive Statements SINUS BRADYCARDIA WITH SINUS ARRHYTHMIA DELAYED PRECORDIAL R/S TRANSITION BORDERLINE ECG COMPARED TO ECG 11/08/2019 07:26:33 NO SIGNIFICANT CHANGES Electronically Signed On 09-09-2022 9:27:21 TURBINE OPERATOR by Yves Carrera D.O.
[2022-09-09 08:49] LABS: Basophils Absolute Auto 0.1 K/mm3 (0.0-0.1); Eosinophils Absolute Auto 0.4 K/mm3 (0-0.3); Eosinophils Percent Auto 5.2 % (0-4.4); Hematocrit 43.7 % (42.0-52.0); Hemoglobin 14.8 g/dL (14.0-18.0); Immature Granulocyte Absolute 0.03 K/mm3 (0.00-0.031); Immature Granulocyte Percent A 0.4 % (0-0.5); Lymphocytes Absolute Auto 3.01 K/mm3 (0.9-3.2); Lymphocytes Percent Auto 43.2 % (18.3-44.2); Mean Corpuscular HGB Conc 33.9 g/dl (32-36); Mean Corpuscular Hemoglobin 32.5 pg (26-34); Mean Corpuscular Volume 95.8 fl (80-100); Mean Platelet Volume 8.4 fl (7.4-10.4); Monocytes Absolute Auto 0.8 K/mm3 (0.1-0.6); Monocytes Percent Auto 11.9 % (2.6-8.5); Neutrophils Absolute Auto 2.7 K/mm3 (1.3-6.7); Neutrophils Percent Auto 38.3 % (45.5-73.1); Platelet Count Result 343 k/mm3 (150-375); Red Blood Count 4.56 M/mm3 (4.6-6.20); Red Cell Distribution Width 12.4 % (11.5-14.5)
[2022-09-09 09:00] LABS: Prothrombin Time 12.9 Seconds (11.1-14.7)
[2022-09-09 09:01] LABS: Partial Thromboplastin Time 27.6 SECONDS (22.3-36.8)
[2022-09-09 09:04] LABS: Alanine Aminotransferase 32 U/L (6-50); Albumin Level 4.2 g/dL (3.5-5.1); Alkaline Phosphatase 55 U/L (38-126); Anion Gap 10 mmol/L (8-16); Aspartate Amino Transferase 30 U/L (17-59); Bilirubin,Total 0.5 mg/dL (0.2-1.3); Blood Urea Nitrogen 13 mg/dL (9-20); Carbon Dioxide 27 mmol/L (22-30); Chloride 104 mmol/L (98-107); Estimated CRCL calculation 92 ml/min; Estimated Glomerular Filt Rate > 60; Glucose 90 mg/dL (65-110); Lipase 50 U/L (23-300); Potassium 3.8 mmol/L (3.4-5.0); Sodium 141 mmol/L (137-145)
[2022-09-09 09:19] LABS: Troponin I 0.035 ng/mL (0.000-0.034)
--- NOTE | 2022-09-09 10:43 | ED.CHESTPAIN ---
HPI - Chest Pain General Chief Complaint: Chest Pain <Lea Chopra PA-C - Last Filed: 09/09/22 12:55> Stated Complaint: CP <Lea Chopra PA-C - Last Filed: 09/09/22 12:55> Time Seen by Provider: 09/09/22 11:26 <Lea Chopra PA-C - Last Filed: 09/09/22 12:55> Source: patient <MCKENNA Elena Last Filed: 09/09/22 12:55> Mode of arrival: ambulatory <MCKENNA Elena Last Filed: 09/09/22 12:55> Limitations: no limitations <Lea Chopra PA-C - Last Filed: 09/09/22 12:55> History of Present Illness HPI narrative: This is a 56-year-old male that presents to the emergency department for left-sided chest pains ongoing since this morning. Reports he woke up and took his son to school. He does not remember exactly what he is doing but he had just gotten back and started to have some sharp left-sided chest pain/heaviness in his chest. He took his full aspirin and blood pressure medications. He has had some improvement but does have persistent pain. Reports he has been having a lot of dizzy spells recently and is currently following with a program checker at [facility]. He went to his primary's office as he had an appointment today, but they prompted him to be seen in the ER as he told them he was having chest pain. Reports some shortness of breath that has been ongoing. Reports the pain in his chest is worse with deep breathing. Denies fever, cough, vomiting, focal numbness or weakness. <MCKENNA Elena Last Filed: 09/09/22 12:55> Related Data Home Medications: Home Medications Medication Instructions Recorded Confirmed amlodipine 2.5 mg tablet 2.5 mg PO DAILY 02/25/21 01/22/22 omeprazole 40 mg capsule,delayed 40 mg PO DAILY 02/25/21 01/22/22 release tizanidine 4 mg tablet 4 mg PO DAILY 02/25/21 01/22/22 valsartan 160 mg tablet 160 mg PO DAILY 02/25/21 01/22/22 aspirin 81 mg tablet,delayed 81 mg PO DAILY 06/20/21 01/22/22 release gabapentin 300 mg capsule 300 mg PO DAILY 06/20/21 01/22/22 oxybutynin chloride 5 mg 5 mg PO DAILY 06/20/21 01/22/22 tablet,extended release 24 hr zolpidem 10 mg tablet 10 mg PO DAILY 06/20/21 01/22/22 <Lea Chopra PA-C - Last Filed: 09/09/22 12:55> Allergies/Adverse Reactions: Allergies Allergy/AdvReac Type Severity Reaction Status Date / Time No Known Allergies Allergy Verified 09/09/22 11:31 <Lea Chopra PA-C - Last Filed: 09/09/22 12:55> Review of Systems Review of Systems: CONSTITUTIONAL: Denies fever CARDIOVASCULAR: Reports chest pain. Denies palpitations, or edema. RESPIRATORY: Reports dyspnea. Denies cough GASTROINTESTINAL: Denies abdominal pain, nausea, vomiting MUSCULOSKELETAL: Reports back pain, joint pain, and myalgia. NEUROLOGIC: Denies numbness, or weakness. <Lea Chopra PA-C - Last Filed: 09/09/22 12:55> All systems reviewed & are unremarkable except as noted in HPI and below <Lea Chopra PA-C - Last Filed: 09/09/22 12:55> [facility], [facility] Past Medical History Medical History: Medical History (Updated 09/09/22 @ 15:13 by Veronica Salazar PA-C) Degenerative disk disease Gastroesophageal reflux disease History of angina Hypertension Inguinal hernia <Lea Chopra PA-C - Last Filed: 09/09/22 12:55> Surgical History Surgical History: Surgical History (Updated 09/09/22 @ 15:11 by Veronica Salazar PA-C) History of fusion of cervical spine C4-5, C5-6 History of inguinal hernia repair History of repair of rotator cuff Bilateral. History of umbilical hernia repair History of vocal cord polypectomy <Lea Chopra PA-C - Last Filed: 09/09/22 12:55> Family History Family History: Family History (Updated 09/09/22 @ 15:12 by Veronica Salazar PA-C) Father Brain aneurysm Sibling Heart disease Hypertension <Lea Chopra PA-C - Last Filed: 09/09/22 12:55> Social History Social History: Social History (Updated 09/09/22 @ 1
[2022-09-09 11:13] LABS: D Dimer 0.46 ug/mL (<0.48)
[2022-09-09 12:11] LABS: Troponin I 0.032 ng/mL (0.000-0.034)
[2022-09-09 14:40] LABS: Influenza A QL RT-PCR Negative (Negative); Influenza B QL RT-PCR Negative (Negative); SARS-CoV-2 RNA PCR Negative
--- NOTE | 2022-09-09 15:10 | PM.IMHP ---
H&P: HPI History of Present Illness Date/Time: 09/09/22 15:10 Chief Complaint: Chest pain. Narrative: This is a very pleasant 56-year-old male with hypertension, GERD, and BPH who presented to the ED for evaluation of chest pain. About 45 minutes prior to arrival he developed discomfort in the left side of his chest that he describes as heavy and occasionally sharp in nature. He took a full-dose aspirin prior to coming to the emergency department and on arrival he was still having discomfort though not significant enough for him to requiring analgesics. His initial troponin was barely elevated 0.035 but is EKG showed a sinus bradycardia with no acute ST segment changes. He is being admitted in this setting for closer monitoring. During our discussion the patient mentions that a couple of weeks ago he had a brief syncopal episode simply while throwing a baseball up into a net to try to free up another baseball that had become stuck. It does not sound as though he had any significant prodrome his prior to him falling flat on his back and striking his head on the ground. He was out for only a split 2nd any seemed to be okay. Since that time he has had intermittent episodes of lightheadedness and dizziness and occasional near syncopal episode. He sees a top stop attacher associated with [facility] due to history is of similar findings, and he was supposed to filler picker an event monitor today or tomorrow. At the time my evaluation he is resting comfortably and has no specific complaints. While I was in the room his heart rate ranged anywhere from 34 to 65 beats per minute. Review of Systems Review of Systems: Twelve systems were reviewed. He has a mild headache. He occasionally has neck pain radiating into the arms from known degenerative disc disease; he is status post cervical fusion many years ago. He has not had exertional chest pain nor has he had syncopal episodes related to exertion. He reports mild shortness of breath but nothing significant. No pleuritic pain. No palpitations or sensations of racing heart today. He has not had any nausea or vomiting. No lower extremity edema. Except as documented, all other systems were reviewed and are negative. [facility] Past Medical History Medical History (Updated 09/09/22 @ 23:07 by Vreonica Salazar PA-C) Degenerative disk disease Gastroesophageal reflux disease Hypertension Surgical History Surgical History (Updated 09/09/22 @ 15:11 by Veronica Salazar PA-C) History of fusion of cervical spine C4-5, C5-6 History of inguinal hernia repair History of repair of rotator cuff Bilateral. History of umbilical hernia repair History of vocal cord polypectomy Family History Family History (Updated 09/09/22 @ 15:12 by Veronica Salazar PA-C) Father Brain aneurysm Sibling Heart disease Hypertension Social History Social History (Updated 09/09/22 @ 23:05 by Veronica Salazar PA-C) Social History: Surrogate medical decision maker: Coby Mcpherson, spouse. Code status: Full code. Smoking packs per day: 1 Smoking cigarettes per day: 20.0 Years smoked: 15 Smoking pack-years: 15.00 Smoking status: Former smoker Alcohol intake: current Drinks per week: 12 Substance use: never Lack of Transportation: No Lack of Food: Never True Current Housing: I Have Housing Concerned About Future Housing: No Difficulty Paying Gas/Electric Bills: No Difficulty Paying for Meds: No Currently Unemployed: No Education: Trade/Vocational Certificate Difficulty w/ Childcare or Family Care: No Additional living arrangements comments: The patient lives with his and son in [place]. Spiritual care concerns: No Meds Home Medications and Allergies Home Medications Medication Instructions Recorded Confirmed Type amlodipine 2.5 mg tablet 2.5 mg PO DAILY 02/25/21 09/09/22 History omeprazole 40 mg capsule,delayed 40 mg PO DAILY 02/25/21 09/09/22 His
--- NOTE | 2022-09-09 15:55 | ECHO_ITS ---
Patient Info Name: Cristobal Mcpherson Age: 56 years : 1965 Gender: Male Ht: 70 in Wt: 199 lbs BSA: 2.13 m2 HR: 58 bpm BP: 162 / 89 mmHg Heart Rhythm: Bradycardia Technical Quality: Fair Exam Date: 09/09/2022 4:18 PM Exam Location: [facility] Pulmonary Patient Status: Outpatient Admit Date: 09/09/2022 Staff Ordering Physician: Veronica Salazar PA-C Automatic Buffing Wheel Former: Courtney Ortiz RDCS Attending Provider: Caio Bruce MD Referring Physician: Marie VAUGHN; Exam Type: CA echo doppler color flow Study Info Indications R00.1 - Bradycardia, unspecified R55 - Syncope and collapse Complete two-dimensional, color flow and Doppler transthoracic echocardiogram is performed. Summary 1. Complete two-dimensional, color flow and Doppler transthoracic echocardiogram is performed. 2. Left ventricular chamber dimension is normal. 3. Left ventricular systolic function is normal, estimated at 65-70%. 4. There is no increased left ventricular wall thickness. 5. The left ventricular diastolic function is normal. 6. Left atrial chamber dimension is mildly enlarged. 7. There is mild mitral valve regurgitation. Left Ventricle Left ventricular chamber dimension is normal. Left ventricular systolic function is normal, estimated at 65-70%. There is no increased left ventricular wall thickness. The left ventricular diastolic function is normal. Right Ventricle Right ventricular chamber dimension is normal. Right ventricular systolic function is normal. Left Atria Left atrial chamber dimension is mildly enlarged. Right Atria Right atrial chamber dimension is normal. Atrial Septum Intact interatrial septum visualized by color flow imaging. Aortic Valve The aortic valve is trileaflet. There is mild aortic valve sclerosis. There is no aortic valve stenosis. There is trace aortic valve regurgitation. Pulmonic Valve The pulmonic valve is normal. There is no pulmonic valve stenosis. There is trace pulmonic regurgitation. Mitral Valve The mitral valve has normal leaflets. There is no mitral valve stenosis. There is mild mitral valve regurgitation. Tricuspid Valve The tricuspid valve leaflets are normal. There is no significant tricuspid valve stenosis. There is trace tricuspid valve regurgitation. Pericardium/Pleural The pericardium appears normal. There is no pericardial effusion. Inferior Vena Cava Normal inferior vena cava with >50% collapse upon inspiration consistent with normal right atrial pressure, 5 mmHg. Aorta The aortic root size at the sinus of Valsalva is normal. Left Ventricular Outflow Tract Name Value Normal LVOT 2D LVOT Diameter 2.0 cm LVOT Doppler LVOT Peak Gradient 2 mmHg LVOT Mean Gradient 1 mmHg LVOT VTI 16 cm LVOT VTI/AV VTI Ratio 0.6 LVOT Stroke Volume 52 ml LVOT CO 2.1 l/min LVOT CI 1.0 l/min/m2 Pulmonic Valve -
--- NOTE | 2022-09-09 17:54 | ADMGEN ---
This patient, Cristobal Mcpherson, was admitted to IMU Room 205-02. Patient/family oriented to hospital policies and general routines including ID bracelet, bed and alarms, visiting hours, pain management, procedures, bathroom and other care routines, personal items, smoking policy, room service/diet, and visiting hours. Information on how to activate the Rapid Response Team has been discussed. Patient/Family are encouraged to report perceived risks to care and to ask questions if they do not understand what they are told or what they should do.
[2022-09-09] MEDS: NITROGLYCERIN SL 0.4 MG TABLET SUBLINGUAL ×2 (18:01→18:08)
[2022-09-09] MEDS: ACETAMINOPHEN 325 MG TABLET 650 MG PO (18:37)
[2022-09-09 19:50] LABS: Troponin I 0.033 ng/mL (0.000-0.034)
[2022-09-09] MEDS: ZOLPIDEM TARTRATE (*CRX) 5 MG TABLET 10 MG PO (22:26)
[2022-09-09] MEDS: GABAPENTIN 300 MG CAPSULE PO (22:26)
[2022-09-10] VITALS (11 sets, daily range): BP systolic 113–126; BP diastolic 68–86; PULSE 40–76; RESP 12–20; TEMP 36.3–36.9; O2SAT 98
--- NOTE | 2022-09-10 | EST_ITS ---
Patient Info Name: Cristobal Mcpherson Age: 56 years : 1965 Gender: Male Ht: 70 in Wt: 195 lbs BSA: 2.11 m2 Exam Date: 09/10/2022 2:18 PM Exam Location: [facility] Stress Patient Status: Inpatient Admit Date: 09/09/2022 Staff Ordering Physician: Cyrus Kinsey MD Attending Provider: Caio Bruce MD Exercise Technologist: Abisai Garcia RDCS, RT Exercise Physician: Cyrus Kinsey MD Exam Type: CA stress test treadmill w NM Study Info Indications R07.9 - Chest pain, unspecified A nuclear stress test was performed. Summary 1. Please correlate with nuclear medicine images, reported separately. 2. No abnormal ST-T wave changes with exercise. 3. Hypertensive blood pressure response. 4. Above average exercise capacity for age. Protocol: Manual Mode Stress ECG Details Stage: REST Duration (min): 2 min : 19 sec Perera: --- Speed (mph): 0.0 Grade (%): 0 HR (bpm): 45 SBP (mmHg): 132 DBP (mmHg): 75 METS: --- Stage: REST Duration (min): 5 min : 16 sec Perera: --- Speed (mph): 0.0 Grade (%): 0 HR (bpm): 75 SBP (mmHg): 132 DBP (mmHg): 75 METS: --- Stage: STAGE 1 Duration (min): 1 min : 0 sec Perera: --- Speed (mph): 1.7 Grade (%): 10 HR (bpm): 88 SBP (mmHg): 132 DBP (mmHg): 75 METS: --- Stage: STAGE 1 Duration (min): 2 min : 0 sec Perera: --- Speed (mph): 1.7 Grade (%): 10 HR (bpm): 95 SBP (mmHg): 132 DBP (mmHg): 75 METS: --- Stage: STAGE 1 Duration (min): 3 min : 0 sec Perera: --- Speed (mph): 1.7 Grade (%): 10 HR (bpm): 91 SBP (mmHg): 203 DBP (mmHg): 97 METS: --- Stage: STAGE 2 Duration (min): 1 min : 0 sec Perera: --- Speed (mph): 2.5 Grade (%): 12 HR (bpm): 101 SBP (mmHg): 203 DBP (mmHg): 97 METS: --- Stage: STAGE 2 Duration (min): 2 min : 0 sec Perera: --- Speed (mph): 2.5 Grade (%): 12 HR (bpm): 109 SBP (mmHg): 190 DBP (mmHg): 91 METS: --- Stage: STAGE 2 Duration (min): 3 min : 0 sec Perera: --- Speed (mph): 2.5 Grade (%): 12 HR (bpm): 109 SBP (mmHg): 190 DBP (mmHg): 91 METS: --- Stage: STAGE 3 Duration (min): 1 min : 0 sec Perera: --- Speed (mph): 3.4 Grade (%): 14 HR (bpm): 125 SBP (mmHg): 197 DBP (mmHg): 87 METS: --- Stage: STAGE 3 Duration (min): 2 min : 0 sec Perera: --- Speed (mph): 3.4 Grade (%): 14 HR (bpm): 130 SBP (mmHg): 197 DBP (mmHg): 87 METS: --- Stage: STAGE 3 Duration (min): 3 min : 0 sec Perera: --- Speed (mph): 3.4 Grade (%): 14 HR (bpm): 137 SBP (mmHg): 197 DBP (mmHg): 87 METS: --- Stage: STAGE 3 Duration (min): 3 min : 31 sec Perera: --- Speed (mph): 3.7 Grade (%): 14 HR (bpm): 140 SBP (mmHg): 197 DBP (mmHg): 87 METS: ---
[2022-09-10 05:02] LABS: Hematocrit 44.1 % (42.0-52.0); Hemoglobin 14.8 g/dL (14.0-18.0); Mean Corpuscular HGB Conc 33.6 g/dl (32-36); Mean Corpuscular Hemoglobin 32.3 pg (26-34); Mean Corpuscular Volume 96.3 fl (80-100); Mean Platelet Volume 8.6 fl (7.4-10.4); Platelet Count Result 353 k/mm3 (150-375); Red Blood Count 4.58 M/mm3 (4.6-6.20); Red Cell Distribution Width 12.3 % (11.5-14.5); White Blood Count 7.2 K/mm3 (4.5-10.0)
[2022-09-10 05:08] LABS: Anion Gap 5 mmol/L (8-16); Blood Urea Nitrogen 12 mg/dL (9-20); Calcium 8.9 mg/dL (8.4-10.2); Carbon Dioxide 30 mmol/L (22-30); Chloride 104 mmol/L (98-107); Estimated CRCL calculation 92 ml/min; Estimated Glomerular Filt Rate > 60; Glucose 102 mg/dL (65-110); Magnesium 1.9 mg/dL (1.6-2.3); Potassium 5.1 mmol/L (3.4-5.0); Sodium 139 mmol/L (137-145)
[2022-09-10] MEDS: PANTOPRAZOLE 40 MG TABLET PO ×2 (08:33→16:23)
[2022-09-10] MEDS: VALSARTAN 160 MG TABLET PO (08:33)
[2022-09-10] MEDS: ASPIRIN 81 MG ENTERIC TABLET PO (08:33)
--- NOTE | 2022-09-10 11:18 | PM.CNCAR ---
Assessment and Plan Assessment and plan (1) Elevated troponin: Code(s): R77.8 - Other specified abnormalities of plasma proteins Status: Acute Assessment and Plan: Minimal nondiagnostic elevation of troponins which are all hovering around the cut off for normal. Given his reproducible nature of his chest pain and the fact that he was attempting some weightlifting the night before his chest pain, I suspect that his chest pain is predominantly related to musculoskeletal in etiology. However he has had a recent syncopal episode, risk factors coronary disease. Echocardiogram is ordered and pending. Will further evaluate with an exercise myocardial perfusion study he. (2) Chest pain: Qualifiers: Chest pain type: unspecified Qualified Code(s): R07.9 - Chest pain, unspecified Code(s): R07.9 - Chest pain, unspecified Status: Acute Assessment and Plan: As detailed above, likely musculoskeletal. Exercise myocardial perfusion study will be ordered. No beta-ana or AV patience agents should be given (3) Hypertension: Code(s): I10 - Essential (primary) hypertension Status: Acute Assessment and Plan: Controlled (4) Dizziness: Code(s): R42 - Dizziness and giddiness Status: Acute Assessment and Plan: Dizzy spells. Patient is intermittently bradycardic into the 40s while having a discussion with him. He is not symptomatic at that heart rate. However given his recent syncopal episode, further workup is warranted. Stress testing will be performed and front desk monitor is already at his house to be worn and follow-up at [facility]. He is also instructed not to drive for the next 6 months unless clear etiology is found. He verbalized understanding. Will check a free T4 level. Would reduce gabapentin and hold zolpidem because of his bradycardia. (5) Syncope: Code(s): R55 - Syncope and collapse Status: Acute Assessment and Plan: As detailed above. He does have a significant neck history and has had previous episodes of significant dizziness when he looks up. (6) Bradycardia: Code(s): R00.1 - Bradycardia, unspecified Status: Acute Assessment and Plan: As detailed above History of Present Illness History of Present Illness Consult date/time: 09/10/22 11:18 Requesting physician: Lea Chopra PA-C Consult reason: chest pain Reason For Visit: Chest Pain/Elevated Troponin Narrative: Date of service 09/10/2022 Reason for consultation: Chest pain, minimally elevated troponin, syncope Requesting provider: Lea Chopra History: Patient is a 56-year-old male who follows with cardiology at [facility]. He was supposed to have a heart monitor placed yesterday but he came to the hospital yesterday because of chest pain. He states over the past few weeks he has been having some dizziness. Whenever he threw a baseball recently he thinks he passed out. He remembers throwing the ball and the next thing he remembers is waking up on the ground. He states it was only a split 2nd he was out a did fall against a pitching machine. This resulted in him contacting his former staff command and control officer at [facility] and subsequently the monitor was ordered. Two nights ago he started to try to do some bench presses but thought the wait was too much and so he did not pursue any further attempts at lifting weights. Yesterday however the morning he had a sudden onset of some heaviness as well as stabbing into the back. He states that it seemed to be worsened whenever he were to touch his chest. He was little nauseated and flushed. He was given nitroglycerin yesterday evening with some slight improvement of his symptoms. For the most part though his pain lasted several hours without significant benefit or relief. Initial troponin was 0.035 and follow-up troponins were 0.032 and 0.033. He still has a little bit of pain at present d
[2022-09-10 12:38] LABS: Free T4 Free Thyroxine 1.18 ng/mL (0.78-2.19)
--- NOTE | 2022-09-10 13:14 | PM.IMPN ---
Progress Note: A&P Assessment and Plan (1) Chest pain: Qualifiers: Chest pain type: unspecified Qualified Code(s): R07.9 - Chest pain, unspecified Code(s): R07.9 - Chest pain, unspecified Status: Acute Assessment and Plan: stress test with results (2) Bradycardia: Code(s): R00.1 - Bradycardia, unspecified Status: Acute (3) Elevated troponin: Code(s): R77.8 - Other specified abnormalities of plasma proteins Status: Acute (4) Dizziness: Code(s): R42 - Dizziness and giddiness Status: Acute (5) Syncope: Code(s): R55 - Syncope and collapse Status: Acute (6) Hypertension: Code(s): I10 - Essential (primary) hypertension Status: Acute (7) Gastroesophageal reflux disease: Code(s): K21.9 - Gastro-esophageal reflux disease without esophagitis Status: Acute Subjective Date/time seen: 09/10/22 13:14 Still having some mild chest pain Exam Const: Other: Well-developed, well-nourished male in the semi-Edwards position in bed in no acute distress. Weight: 80.5 kilograms. BMI: 28.0. HENMT: Other: Normocephalic, atraumatic. Nares patent bilaterally. Oral mucosa moist. Eyes: Other: Pupils are reactive. Extraocular motions intact. Sclerae anicteric. Neck: Other: Supple. No carotid bruits. Somewhat tender to palpation in the cervical paraspinous muscles bilaterally. Chest: Other: No tenderness to palpation over the chest wall. Resp: Other: Respirations are nonlabored. Lungs are clear to auscultation bilaterally. Cardio: Other: Bradycardic with heart rates ranging between the mid 30s to mid 60s at the time my evaluation. GI: Other: Abdomen is soft, nontender, and nondistended with positive bowel sounds. Back/Spine/Pelvis: Other: No midline cervical vertebral tenderness. Skin: Other: Warm and dry. No rash or lesion on limited exam. Neuro: Other: Alert. Cranial nerves 2-12 are grossly intact. No gross focal deficits to casual conversation. Extrem: Other: No cyanosis, clubbing, or edema. Peripheral pulses intact. Psych: Other: Pleasant and cooperative. Appropriate mood and affect. Objective Data Vital Signs Vital Signs: Vital Signs - 24 hr 09/09/22 15:38 09/09/22 15:45 09/09/22 16:01 Temperature Pulse Rate 43 L 43 L 47 L Respiratory Rate 16 Blood Pressure 162/70 H 136/60 Pulse Oximetry 98 100 99 Oxygen Delivery 09/09/22 16:15 09/09/22 16:33 09/09/22 17:02 Temperature Pulse Rate 60 54 L 87 Respiratory Rate 16 Blood Pressure 146/70 H Pulse Oximetry 95 100 Oxygen Delivery 09/09/22 17:15 09/09/22 18:00 09/09/22 18:08 Temperature 98.1 F Pulse Rate 67 54 L Respiratory Rate 16 Blood Pressure 125/82 116/65 Pulse Oximetry 99 Oxygen Delivery 09/09/22 18:15 09/09/22 18:00 09/09/22 20:00 Temperature 96.9 F L Pulse Rate 47 L 47 L Respiratory Rate 16 Blood Pressure 103/65 108/67 Pulse Oximetry 99 Oxygen Delivery 09/09/22 23:58 09/09/22 20:00 09/10/22 00:00 Temperature 96.9 F L Pulse Rate 44 L Respiratory Rate 16 Blood Pressure 134/69 Pulse Oximetry 97 Oxygen Delivery Room Air Room Air 09/10/22 02:51 09/10/22 04:00 09/09/22 20:00 Temperature 97.3 F L Pulse Rate 41 L 48 L Respiratory Rate 16 Blood Pressure 126/86 Pulse Oximetry 98 Oxygen Delivery Room Air 09/09/22 22:00 09/10/22 00:00 09/10/22 02:00 Temperature Pulse Rate 40 L 41 L 42 L Respiratory Rate Blood Pressure Pulse Oximetry Oxygen Delivery 09/10/22 04:00 09/10/22 06:00 09/10/22 07:58 Temperature 98.2 F Pulse Rate 44 L 40 L 44 L Respiratory Rate 12 Blood Pressure 123/76 Pulse Oximetry 98 Oxygen Delivery 09/10/22 08:00 09/10/22 10:00 09/10/22 08:00 Temperature Pulse Rate 41 L 54 L Respiratory Rate Blood Pressure Pulse Oximetry Oxygen Delivery Room Air
--- NOTE | 2022-09-10 18:27 | PC.NURSE ---
Spoke with Dr. Hampton regarding the patient discharging this shift. Dr. Hampton is ok with discharging the patient, patient's stress test was normal, and the patient was only waiting on normal test results. Will speak with Dr. Burnette regarding discharge orders.
--- NOTE | 2022-09-16 14:55 | PM.DS ---
DS: Admitting Diagnosis Discharge Date 09/10/22 Admitting Diagnosis Chest pain DS: Summary Hospital Course Hospital Course: patient is a 56-year-old gentleman comes in with chest pain. He had negative troponin and also had a stress test which was essentially negative for any coronary disease Patient can be discharged home. Time Spent with Patient Time attestation: Total time spent providing and/or coordinating discharge services: Discharge Plan Discharge Consulting providers: Cyrus Kinsey ; Lea Chopra ; Po Coles ; Veronica Salazar ; Yves Carrera ; Marcelo Bryson V. Discharging Clinician: Shaka Burnette Patient Disposition: Home, Self-Care Activity: as tolerated Diet: heart healthy Patient Instructions: Antibiotic Form Stand Alone Forms: General Discharge Information Follow-up/Referrals: Mariela,DO Wolf [Primary Care Provider] - Discharge Medications: Continued amlodipine 2.5 mg tablet 2.5 mg PO DAILY omeprazole 40 mg capsule,delayed release(DR/EC) 40 mg PO DAILY valsartan 160 mg tablet 160 mg PO DAILY zolpidem 10 mg tablet 10 mg PO HS aspirin 81 mg tablet,delayed release (DR/EC) 81 mg PO DAILY oxybutynin chloride 5 mg tablet extended release 24hr 5 mg PO HS gabapentin 300 mg capsule 300 mg PO HS tamsulosin 0.4 mg Capsule 0.4 mg PO DAILY Date of admission: 09/09/22 12:27 Primary Care Provider: Mariela,Wolf Admitting Provider: Caio Bruce Attending physician on admission: Caio Bruce Condition: Serious
== END 2022-09-10 18:53 | disposition home or self-care (01) ==
LOC: ANHED 12:53 → ANHIMU 14:25
PROVIDERS: Internal Medicine Cardiovascular Disease; Physician Assistant; Admitting Provider Hospitalist; Emergency Provider Emergency Medicine; PCP Student in an Organized Health Care Education/Training Program; Visit Provider Hospitalist
DX: R77.8 Other specified abnormalities of plasma proteins (principal); R07.9 Chest pain, unspecified; I10 Essential (primary) hypertension; R42 Dizziness and giddiness; R55 Syncope and collapse; R00.1 Bradycardia, unspecified; K21.9 Gastro-esophageal reflux disease without esophagitis; I34.0 Nonrheumatic mitral (valve) insufficiency; J98.11 Atelectasis; Z20.822 Contact with and (suspected) exposure to COVID-19; M19.90 Unspecified osteoarthritis, unspecified site; N40.0 Benign prostatic hyperplasia without lower urinary tract symptoms; Z98.1 Arthrodesis status; F10.90 Alcohol use, unspecified, uncomplicated; Z87.891 Personal history of nicotine dependence; Z79.82 Long term (current) use of aspirin; Z79.52 Long term (current) use of systemic steroids; Z79.899 Other long term (current) drug therapy; Z82.49 Family history of ischemic heart disease and other diseases of the circulatory system
CPT/HCPCS: 36415; 71046; 78452; 80048; 80053; 83690; 83735; 84439; 84443; 84484; 85025; 85027; 85380; 85610; 85730; 87636; 93005; 93017; 93306; 93880; 99285; A9270; A9502; G0378

== ENCOUNTER 2022-10-14 09:30 | Outpatient (RCR) | payer MEDICARE, OTHER, SELFPAY ==
--- NOTE | 2022-08-01 09:11 | PTOPEVAL1 ---
Assessment and note entered by Jillian Le, PT Evaluation Information Assessment Status Evaluation Diagnosis lumbar spondylosis Onset December 2021 Subjective Information Bharath reports: gradual increase in back pain, without trauma or injury to back; have chronic neck and back pain, but more back pain and more pain into legs; to have a back injection next week; neurosurgeon wants him to do injections and try therapy, then see how it does; Reported Pain Level Pain Score Self Report bsck pain Additional Pain Score Comments pain range of 6-9 /10; into both hips R>L, posterior LE to calves constantly and intermittent into tingling toes; pain increased with waking up in AM, activity: report tolerances stand/ walking 30-60 min and sitting 30 min;pain decreased by change position, hot shower, ibuprofen 2x/day; have problems with sleeping in general due to neck pain and insomnia- take sleeping meds Oswestry self assessment functional score of 46% limitation in activity level; has home electrical stim unit--had for his neck, has not used for his back--educated on back pad placement and use of heat PRN for pain control. Assessment PT Clinical Summary Bharath has the diagnosis of lumbar spondylosis, with orders from neurosurgery. He is to have back injection next week, do PT and then return to dr for follow up. Pt wants to avoid back surgery if at all possible. He has radicular pain into R and L calf constantly, intermittent into toes. He continues to do home tasks and activity for fitness, to maintain strength and keep joints loose. With the evaluation, he has good flexibility of trunk and hips, with pain ful motions of standing trunk flexion and extension, supine L hip IR and ER & R hip ER; there are spasms throughout thoracic and lumbar paraspinals, with decreased mobility of thoracic and lumbar spine. Skilled PT services are indicated for modalities to decrease pain and spasms; therapeutic exercises to stretch and strengthen trunk and education to progress HEP and pain control techniques. Plan of Care Interventions Hot Pack/Cold Pack,Manual Therapy,Mechanical Traction,Neuro Re-education,Patient/Caregiver
--- NOTE | 2022-09-02 10:18 | PTOPPROG ---
Assessment and note entered by Jillian Le, PT Evaluation Information Assessment Status Progress Diagnosis lumbar spondylosis Onset December 2021 Subjective Information Bharath reports: going to call the neurologist for follow up appointment; set back due to fall with looking up and dizzy, fell backwards, hit his thoracic spine and more pain in neck and back; called window clerk, to get heart monitor to check cardiac for cause of dizziness or neck issues; before the fall, back was a little better, less pain in legs; cold weather is not helping things; PAIN: pain range 5-8/10, nagging pain always there; into R leg to calf intermittent and once for short time to toes; and L LE- leg to calf intermittent; increase pain with bending forward, lifting, more activity; decrease pain with heat, ibuprofen; reported walk/standing tolerance 15-20 min; Assessment PT Clinical Summary Bharath has received 9 PT sessions for the diagnosis of back pain. Compared to the initial evaluation: pain has decreased 1 rating at the low and at the highest rating; radicular pain into R and L LE has decreased to calf B, with few short times to R toes; self assessment Oswestry score slightly worse from 46% to 48% limitation; reported standing/walking tolerance is slightly less; increase trunk stability with movements and exercises; continues to have pain with trunk flexion and extension motions; no longer has pain with supine L hip IR, but B ER hip increase pain; continues to have spasms along spine. Bharath has been instructed on home exercises; He had a fall, which set him back slightly with his pain He is to follow up with neurosurgeon about his neck and about his back. Continue PT 1x/wk to advance home exercises, to further increase trunk strength and decrease pain. Plan of Care Interventions Electrical Stimulation,Hot Pack/Cold Pack,Manual Therapy,Mechanical Traction,Neuro Re-education, Therapeutic Activities,Therapeutic Exercise, Ultrasound PT Services Indicated Yes Treatment Frequency and 1x/wk for 6 weeks
--- NOTE | 2022-09-10 10:07 | PCPTNOTE ---
Patient did not show up for scheduled appointment this date; called patient who answered phone stated he was admitted to the hospital yesterday and currently at [facility] due to have another episode of dizziness and passing out yesterday. Waiting on what to do next.
--- NOTE | 2022-10-14 10:12 | PTOPDC ---
Assessment and note entered by Jillian Le, PT Evaluation Information Assessment Status Discharge Diagnosis lumbar spondylosis Onset December 2021 Subjective Information had MRI of head due to dizziness- negative; to see for neck next week; back is better, but have not been doing as much since neck hurting; Reported Pain Level Pain Score Self Report Additional Pain Score Comments back pain range of 6-8/10; radicular to R calf intermittent/ none into L leg- few weeks ago into L mid thigh; reported standing/walking tolerance 1 hour; increase pain with walking on hills/uneven ground; decrease pain with electrical stim, rest heat, stretching; have a home stim unit, but it does not work, going to get a new one; Self assessment Oswestry score of 44% limitation in activity level; Assessment PT Clinical Summary Bharath has received 13 PT sessions. He continues to have neck pain and issues with dizziness. Recent cardiac testing was negative. Compared to the last reevaluation: pain rating at the low rating is 1 worse and high rating is the same; reported standing/walking tolerance increased from 20 to 60 minutes; decreased radicular pain into R and L LE; Oswestry self assessment improved from 48 to 44% limitation in activity level; increase in trunk and hip strength; increased thoracic spinal mobility; continues to have spasms over R and L thoracic and lumbar paraspinals; progression of his Home exercises. The goals were partially achieved. Bharath has a good understanding of chronic pain management--balance of rest/activity, HEP, posture and self care. Discharge PT services. Plan of Care PT Services Indicated No
== END 2022-10-14 13:38 | disposition home or self-care (01) ==
LOC: ANHPT 09:30
PROVIDERS: PCP Student in an Organized Health Care Education/Training Program; Visit Provider Neurological Surgery
DX: M47.816 Spondylosis without myelopathy or radiculopathy, lumbar region (principal)
CPT/HCPCS: 97012; 97014; 97110; 97140; 97161; 97530; G0283

== ENCOUNTER 2023-04-09 08:00 | Outpatient (RCR) | payer MEDICARE, OTHER, SELFPAY ==
--- NOTE | 2023-02-10 15:40 | PTOPEVAL1 ---
Assessment and note entered by Joey Chery, PT Evaluation Information Assessment Status Evaluation Diagnosis neck pain, OA Onset Chronic Subjective Information The patient reports that he has had 3 neck surgeries with the last in 2020. He is having trouble with yard work especially raking the leaves, overhead activities, and has tingling in both arms when he is weed eating. He is R handed. He takes IBU 800 mg along with using ice packs and did apply CBD oil for awhile. He has come to physical therapy multiple times and has lost his HEP from the last time he did physical therapy. Likes E-stim and manual therapy. Reported Pain Level Pain Score 7: Self Report Assessment PT Clinical Summary Bharath is a 57 year old male coming into the clinic with a diagnosis of neck pain. He has decreased range of motion worse with sidebending and rotation compared to flexion and extension. forward head and rounded shoulders. Physical therapy will work on improving posture and scapular stabilizers to take stress off of the upper traps and manual therapy and modalities to reduce pain and tenderpoints. Plan of Care Interventions Electrical Stimulation,Gait Training,Hot Pack/Cold Pack,Manual Therapy,Neuro Re-education,Patient/ Caregiver Education,Therapeutic Activities, Therapeutic Exercise,Ultrasound Other Interventions cupping, taping, IASTM PT Services Indicated Yes Treatment Frequency and 2x/wk for 4 weeks Duration These treatments will address the objective and functional deficits as defined above. The patient will be advanced safely and appropriately in order for the patient to progress towards his/her prior level of function. Additional exercises will be introduced and as well as a comprehensive home exercise program upon discharge, if needed, ?to ensure carryover of functional gains achieved in the clinic. This treatment plan has been reviewed and agreement upon by the patient.
--- NOTE | 2023-03-10 10:50 | PTOPPROG ---
Assessment and note entered by Joey Chery, PT Evaluation Information Assessment Status Progress Diagnosis neck pain, OA of the spine Onset Chronic Subjective Information Patient reports not much change in pain in the neck, but also just finished with all of the prep work in his garden and yard, so there should be less stress on his neck and spine. Patient Reports the lower and middle back is also bothering him. Still having radiating symptoms requiring increased doses of his gabapentin. DONTAE arms down to his elbows, sometimes to the wrist. Assessment PT Clinical Summary Bharath is a 57 year old male coming into the clinic with a diagnosis of neck pain and OA of the spine. He was evaluated on 02/10/23 and has attended 8 visits. The patient has not met any of his goals. Physical therapy feel at this time that it might be a good idea to increase treatment time and work on the entire spine instead of just the neck to see if we can get everything calmed down. The patient is okay with that plan. If no change in pain at next re-eval recommend going back to doctor with possible imaging. Plan of Care Interventions Electrical Stimulation,Gait Training,Hot Pack/Cold Pack,Manual Therapy,Neuro Re-education,Patient/ Caregiver Education,Therapeutic Activities, Therapeutic Exercise,Ultrasound Other Interventions cupping, taping, IASTM PT Services Indicated Yes Treatment Frequency and 1-2x/wk for 4 weeks Duration These treatments will address the objective and functional deficits as defined above. The patient will be advanced safely and appropriately in order for the patient to progress towards his/her prior level of function. Additional exercises will be introduced and as well as a comprehensive home exercise program upon discharge, if needed, ?to ensure carryover of functional gains achieved in the clinic. This treatment plan has been reviewed and agreement upon by the patient.
--- NOTE | 2023-04-09 12:00 | PTOPDC ---
Assessment and note entered by Joey Chery, PT Evaluation Information Assessment Status Discharge Diagnosis neck pain, OA of the spine Onset Chronic Subjective Information Patient reports he still has stiffness in his spine and reports feeling tight worst in the AM. Was golfing last weekend and doing yard work. Reported Pain Level Pain Score 8: Self Report Assessment PT Clinical Summary Bharath is a 57 year old male coming into the clinic with a diagnosis of neck pain and OA of the spine. Patient was evaluated on 02/10/23 and has attended 16 sessions. 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 Recommend referral back to his neurosurgeon, to discuss less conservative options . Discharged from skilled physical therapy. Plan of Care PT Services Indicated No
== END 2023-04-10 13:13 | disposition home or self-care (01) ==
LOC: ANHPT 08:00
PROVIDERS: PCP Student in an Organized Health Care Education/Training Program; Visit Provider Neurological Surgery
DX: M54.2 Cervicalgia (principal); M47.22 Other spondylosis with radiculopathy, cervical region
CPT/HCPCS: 97014; 97110; 97112; 97140; 97161; G0283

== ENCOUNTER 2023-12-03 08:00 | Outpatient (RCR) | payer MEDICARE, OTHER, SELFPAY ==
--- NOTE | 2023-10-22 09:15 | PTOPEVAL1 ---
Assessment and note entered by Paramjit Leblanc, PT Evaluation Information Assessment Status Evaluation Diagnosis Neck pain, shoulder pain, shoulder weakness Onset 2016 Subjective Information Reports that he has been having neck pain since 2016. States that his left shoulder is burning all of the time. Feels an ache that does not go away. He is R handed. He is unable to sleep at night and unable to put any pressure on his left shoulder. If he puts himself fin the reading position it hurts both his neck and his shoulders. Does not feel that he can reach overhead without pain. Only taking 800mg of Ibuprophen for pain. 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 ROM is functional, but strength and pain limits quality of life and function. Current limitations center around cervical pain and tightness reducing functional activity and lack of sleep. Will benefit from skilled therapy to address these deficits. Plan of Care Interventions Electrical Stimulation,Hot Pack/Cold Pack,Manual Therapy,Neuro Re-education,Therapeutic Activities, Therapeutic Exercise PT Services Indicated Yes Treatment Frequency and 2x/week for 10 visits Duration These treatments will address the objective and functional deficits as defined above. The patient will be advanced safely and appropriately in order for the patient to progress towards his/her prior level of function. Additional exercises will be introduced and as well as a comprehensive home exercise program upon discharge, if needed, ?to ensure carryover of functional gains achieved in the clinic. This treatment plan has been reviewed and agreement upon by the patient.
--- NOTE | 2023-10-22 09:15 | OPREHPOC ---
Outpatient Therapy Plan of Care This is a Multidisciplinary Plan of Care that may contain components documented by all disciplines (PT, OT, and ST.) PT Problem 1 PT Problem #1 Knowledge Deficit PT Goal 1 Goal Wolfe with HEP Target Visit 5 PT Goal 2 Goal Require no cueing for proper postural positioning during strengthening Target Visit 5 PT Problem 2 PT Problem #2 Pain PT Goal 1 Goal Report 50% improvement in pain symptoms improving quality of sleep. Target Visit 5 PT Problem 3 PT Problem #3 Impaired Strength PT Goal 1 Goal Improve tavo shoulder flexion strength to 90 degrees to 4/5 to improve lifting ability without upper trapezius compensation Target Visit 10 PT Problem 4 PT Problem #4 Impaired Range of Motion PT Goal 1 Goal Improve L cervical rotation by 10 degrees to improve facet mobility and reduce pain with positioning Target Visit 10
--- NOTE | 2023-12-03 09:19 | PTOPDC ---
Assessment and note entered by Paramjit Leblanc, PT Evaluation Information Assessment Status Discharge Diagnosis Neck pain, shoulder pain, shoulder weakness Onset 2015 Subjective Information Reports that he has seen some minor improvement. Feels that the strength in his right shoulder has improved. He is still having radicular pain on right side but left is improved regardless of muscle damage. Reported Pain Level Pain Score 7: Self Report Assessment PT Clinical Summary Patient has seen some progress objectively and subjectively including improved strength of right shoulder. Still noting some gross weakness at this time. Has follow up with MD in January to assess cervical involvement and assure structural integrity of fusion at this time. Patient is independent with HEP at his time and suitable for discharge. Plan of Care PT Services Indicated Yes
--- NOTE | 2023-12-03 09:19 | OPREHPOC ---
Outpatient Therapy Plan of Care This is a Multidisciplinary Plan of Care that may contain components documented by all disciplines (PT, OT, and ST.) PT Problem 1 PT Problem #1 Knowledge Deficit PT Goal 1 Goal Hayes with HEP Target Visit 5 Progress Met PT Goal 2 Goal Require no cueing for porper postural positioning during strengthening Target Visit 5 Progress Met PT Problem 2 PT Problem #2 Pain PT Goal 1 Goal Report 50% improvement in pain symptoms improving quality of sleep. Target Visit 5 Progress Not Met PT Problem 3 PT Problem #3 Impaired Strength PT Goal 1 Goal Improve tavo shoulder flexion strength to 90 degrees to 4/5 to improve lifting ability without upper trapezius compensation Target Visit 10 Progress Partially Met Comment Improved on R side PT Problem 4 PT Problem #4 Impaired Range of Motion PT Goal 1 Goal Improve L cervical rotation by 10 degrees to improve facet mobility and reduce pain with positioning Target Visit 10 Progress Not Met
== END 2023-12-03 10:37 | disposition home or self-care (01) ==
LOC: ANHPT 08:00
PROVIDERS: PCP Student in an Organized Health Care Education/Training Program; Visit Provider Neurological Surgery
DX: M54.2 Cervicalgia (principal)
CPT/HCPCS: 97012; 97014; 97110; 97140; 97161; 97530; G0283

== ENCOUNTER 2024-03-21 16:18 | Outpatient (CLI) | payer MEDICARE, OTHER, SELFPAY ==
--- NOTE | ~2024-03-21 | CT_ITS ---
EXAMINATION: CT abdomen pelvis w con DATE: 03/21/2024 17:55 INDICATION: RLQ PAIN TECHNIQUE: Computed tomography (CT) of the abdomen and pelvis was performed with 100 mL Omnipaque-350 intravenous contrast. Automated exposure control and iterative reconstruction technique were employe d. The dose-length product was 686.80 mGy-cm. COMPARISON: None. FINDINGS: Lower thorax: Cardiomegaly with coronary artery calcification. Liver: Normal. Biliary/Gallbladder: Gallbladder is normal. No bile duct dilation. Pancreas: No mass or duct dilation. Spleen: Normal. Adrenals:No mass. Kidneys: No suspicious mass, obstructing stone, or hydronephrosis. GI tract: No small or large bowel dilation. Normal appendix. Mesentery/Peritoneum: No ascites, mass, or free air. Retroperitoneum: No mass. Atherosclerotic abdominal aortic and/or arterial calcifications. Pelvis: Pelvic organs are within normal limits. Soft Tissues: Soft tissues and body wall unremarkable. Bones: No acute osseous finding. IMPRESSION: No acute abdominopelvic process detected. Reviewed, dictated and finalized at location K.
[2024-03-21 17:22] LABS: Estimated Glomerular Filt Rate > 60
== END 2024-03-21 16:19 | disposition home or self-care (01) ==
LOC: ANHIMG 16:18
PROVIDERS: PCP Student in an Organized Health Care Education/Training Program; Visit Provider Student in an Organized Health Care Education/Training Program
DX: R10.31 Right lower quadrant pain (principal)
CPT/HCPCS: 74177; Q9967

== ENCOUNTER 2024-08-04 09:47 | Outpatient (CLI) | payer MEDICARE, OTHER, SELFPAY ==
--- NOTE | ~2024-08-04 | US_ITS ---
Radial side of the wrist/L area/carpal area ULTRASOUND Ordering provider: Wolf Sierra, DO History: . Bursitis, right hand . Comparison: None. FINDINGS/impression: No definite abnormality seen. Reviewed, dictated and finalized at location A.
== END 2024-08-04 09:48 | disposition home or self-care (01) ==
LOC: MICIMG 09:49
PROVIDERS: PCP Student in an Organized Health Care Education/Training Program; Visit Provider Student in an Organized Health Care Education/Training Program
DX: M70.11 Bursitis, right hand (principal)
CPT/HCPCS: 76882

== ENCOUNTER 2024-08-22 09:45 | Outpatient (RCR) | payer MEDICARE, OTHER, SELFPAY ==
--- NOTE | 2024-05-25 11:59 | OPREHPOC ---
Outpatient Therapy Plan of Care This is a Multidisciplinary Plan of Care that may contain components documented by all disciplines (PT, OT, and ST.) PT Problem 1 PT Problem #1 Knowledge Deficit PT Goal 1 Goal *indep with HEP Target Visit 10 PT Problem 2 PT Problem #2 Pain PT Goal 1 Goal 1* pain rating at worst of 4/10 2* self assessment Neck Disability Index rating of 28% limitation in activity 3* with palpation to R and L of cervical incision, minimal tightness of muscle Target Visit 10 PT Problem 3 PT Problem #3 Impaired Flexibility PT Goal 1 Goal pt perform 3 reps without an increase in pain reported: to improve driving and home task ability sitting cervical motion 1* rotation R to 40' 2* rotation L to 40' 3* side bend R 4* side bend L Target Visit 10
--- NOTE | 2024-05-25 11:59 | PTOPEVAL1 ---
Assessment and note entered by Jillian Le, PT Evaluation Information Assessment Status Evaluation ICD-10 Condition Codes (PT) Cervicalgia M54.2,M54.13 Onset March 29, 2024 Subjective Information this is the 4th cervical surgery; had fusion C 5- 6-7-T1; no cervical collar used post op; restriction from dr: lifting max of 20# per pt; pain had improved, but then in recliner and went to sit up and jerked and popped few days ago Activity; walking more, doing light activities; Reported Pain Level Pain Score Self Report Additional Pain Score Comments pain range in the past week 5-10; heavy, super stiff, soreness, achy; mostly on L side neck increase pain: activity decrease pain: ice, tylenol only; pain script meds 1x in past 2 weeks; biofreeze sleep ~ 5 hours with sleep meds also have L shoulder pain Assessment PT Clinical Summary Bharath is s/p cervical fusion C 4-T1. This is his 4th cervical surgery. Self assessment with Neck Disability Index rating of 48%. Sleep and activity level are disrupted due to pain. He also has a history of back pain, bilateral shoulder surgery and pain. With the evaluation: incision is well healed, decreased cervical motion with pain increase all motions; spasms and tightness over cervical- thoracic and upper traps areas. Skilled PT services are indicated for modalities to decrease pain, therapeutic exercises to stretch and strengthen cervical-thoracic musculature and education for HEP and pain management. Plan of Care Interventions Electrical Stimulation,Hot Pack/Cold Pack,Manual Therapy,Neuro Re-education,Patient Education,Therapeutic Activities,Therapeutic Exercise,Ultrasound,Other Other Interventions taping, IASTM PT Services Indicated Yes Treatment Frequency and 1-2x/wk for 10 visits Duration These treatments will address the objective and functional deficits as defined above. The patient will be advanced safely and appropriately in order for the patient to progress towards his/her prior level of function. Additional exercises will be introduced and as well as a comprehensive home exercise program upon discharge, if needed, ?to ensure carryover of functional gains achieved in the clinic. This treatment plan has been reviewed and agreement upon by the patient.
--- NOTE | 2024-07-07 09:57 | OPREHPOC ---
Outpatient Therapy Plan of Care This is a Multidisciplinary Plan of Care that may contain components documented by all disciplines (PT, OT, and ST.) PT Problem 1 PT Problem #1 Knowledge Deficit PT Goal 1 Goal / Goal Update *indep with HEP Target Visit 10 Progress Met PT Goal 2 Goal / Goal Update 07-07-24 progress goal met contine towards goal to progress education Target Visit 20 PT Problem 2 PT Problem #2 Pain PT Goal 1 Goal / Goal Update 1* pain rating at worst of 4/10 2* self assessment Neck Disability Index rating of 28% limitation in activity 3* with palpation to R and L of cervical incision, minimal tightness of muscle Target Visit 10 Progress Not Met PT Goal 2 Goal / Goal Update 07-07-24 progress goals not met; improved with #3 continue towards goals Target Visit 20 PT Problem 3 PT Problem #3 Impaired Flexibility PT Goal 1 Goal / Goal Update pt perform 3 reps without an increase in pain reported: to improve driving and home task ability sitting cervical motion 1* rotation R to 40' 2* rotation L to 40' 3* side bend R 4* side bend L Target Visit 10 Progress Partially Met PT Goal 2 Goal / Goal Update 07-07-24 progress goal 1 & 2 partially met- met ROM but increases pain continue towards goals Target Visit 20
--- NOTE | 2024-07-07 09:57 | PTOPPROG ---
Assessment and note entered by Jillian Le, PT Progress Report Assessment Status Progress ICD-10 Condition Codes (PT) Cervicalgia M54.2,M54.13 Onset March 29, 2024 Subjective Information had phone dr noriega yesterday-- going to increase gabapentin and continue therapy; to follow up with in 3 weeks; may have to do a repeat MRI to check neck; having problems holding head up and neck hurts with more upright position; problems moving neck and turn to side; want to be more active and not as much pain; want to continue therapy--it is helping him. PAIN: range in the past week of 6-8/10, R and L cervical and upper traps decrease pain: therapy treatments, ice, rest increase pain: moving neck have headaches about every other day, lasting few hours, take meds to ease them Assessment PT Clinical Summary Bharath has received 10 PT sessions. Compared to the initial evaluation: pain from 5-8/ 10 to 6-8/10; headaches about every other day; self assessment Neck Disability rating is the same at 48%; increase cervical rotation and side bend to R and L, 5-10'; with palpation, less spasms over cervical, upper traps and thoracic musculature; improved scar mobility; modalities- dry needling, manual therapy, kinesiotape, stretching help to decrease his pain and increase ROM. Education for HEP and pain control. The goals were partially met. Continue PT treatment. Plan of Care Interventions Electrical Stimulation,Manual Therapy,Neuro Re- education,Patient Education,Therapeutic Activities,Therapeutic Exercise,Ultrasound,Other Other Interventions taping, dry needling PT Services Indicated Yes Treatment Frequency and 2x/wk for 10 visits Duration These treatments will address the objective and functional deficits as defined above. The patient will be advanced safely and appropriately in order for the patient to progress towards his/her prior level of function. Additional exercises will be introduced and as well as a comprehensive home exercise program upon discharge, if needed, ?to ensure carryover of functional gains achieved in the clinic. This treatment plan has been reviewed and agreement upon by the patient.
--- NOTE | 2024-08-12 10:02 | OPREHPOC ---
Outpatient Therapy Plan of Care This is a Multidisciplinary Plan of Care that may contain components documented by all disciplines (PT, OT, and ST.) PT Problem 1 PT Problem #1 Knowledge Deficit PT Goal 1 Goal / Goal Update *indep with HEP Target Visit 10 Progress Met PT Goal 2 Goal / Goal Update 07-07-24 progress goal met continue towards goal to progress education -------- 08-12-24 progress goal met- continue to progress education/HEP; Target Visit 28 PT Problem 2 PT Problem #2 Pain PT Goal 1 Goal / Goal Update 1* pain rating at worst of 4/10 2* self assessment Neck Disability Index rating of 28% limitation in activity 3* with palpation to R and L of cervical incision, minimal tightness of muscle Target Visit 10 Progress Not Met PT Goal 2 Goal / Goal Update 07-07-24 progress goals not met; improved with #3 continue towards goals -------- 08-12-24 progress goals not met: #1 8/10; #2 44% limitation; #3- moderate to minimal spasms NEW GOALS: 1* pain rating at worst of 6/10 2* self assessment Neck Index rating of 36% limitation in activity level 3* pt report headache occur 1x/wk. Target Visit 28 PT Problem 3 PT Problem #3 Impaired Flexibility PT Goal 1 Goal / Goal Update pt perform 3 reps without an increase in pain reported: to improve driving and home task ability sitting cervical motion 1* rotation R to 40' 2* rotation L to 40' 3* side bend R 4* side bend L Target Visit 10 Progress Partially Met PT Goal 2 Goal / Goal Update 07-07-24 progress goal 1 & 2 partially met- met ROM but increases pain continue towards goals -------- 08-12-24 progress goals not met; continue to have pain with motions continue towards goals Target Visit 28
--- NOTE | 2024-08-12 10:02 | PTOPPROG ---
Assessment and note entered by Jillian Le, PT Progress Report Assessment Status Progress ICD-10 Condition Codes (PT) Cervicalgia M54.2,M54.13 Onset March 29, 2024 Subjective Information neck is better--more mobility and less pain; going to get MRI- have not scheduled yet; want to continue therapy and see what the MRI says do not have follow up appt with surgeon, will make after the MRI; PAIN: range in the past week: 5-8/10; achy, stiff in neck, both sides, R > L have headaches- few times/wk increase pain: more active-yard work, overhead reaching with arms; decrease pain: rest, ice, ibuprofen sleeping: improved past few nights--at best 6 hours of sleep Assessment PT Clinical Summary Bharath has received a total of 20 PT sessions. Compared to the last progress report: pain rating from 6-8/10 to 5-8/10; decrease in headaches from every other day to 2x/week; manual therapy and dry needling decrease his pain; self assessment with Neck Disability Index rating from 48% to 44% limitation in activity level; cervical ROM is about the same with rotation & side bending to R and L --most pain increase with side bending to L and rotation to R; with R and L shoulder strengthening, using 4# weight to 90' x 5 reps without irritation to neck, but shoulders hurt-- has issues with both shoulders; education for HEP and posture. The goals were partially met. He is to have an MRI and follow up with dr after it. Continue PT treatment to further decrease pain and increase strength. Plan of Care Interventions Electrical Stimulation,Manual Therapy,Neuro Re- education,Patient/Caregiver Education,Therapeutic Activities,Therapeutic Exercise,Ultrasound,Other Other Interventions taping, dry needling PT Services Indicated Yes Treatment Frequency and 1-2x/wk for 8 visits Duration These treatments will address the objective and functional deficits as defined above. The patient will be advanced safely and appropriately in order for the patient to progress towards his/her prior level of function. Additional exercises will be introduced and as well as a comprehensive home exercise program upon discharge, if needed, ?to ensure carryover of functional gains achieved in the clinic. This treatment plan has been reviewed and agreement upon by the patient.
--- NOTE | 2024-08-23 08:00 | PCPTNOTE ---
This treatment is being continued on visit number [id number] Please see documentation on both accounts to view progress. Completed interventions, outcomes, and problems have been marked as Inactive to facilitate the copying of the Care plan routine for recurring accounts.
== END 2024-08-22 14:59 | disposition home or self-care (01) ==
LOC: ANHPT 09:45
PROVIDERS: PCP Student in an Organized Health Care Education/Training Program
DX: M50.10 Cervical disc disorder with radiculopathy, unspecified cervical region (principal); Z98.1 Arthrodesis status
CPT/HCPCS: 97014; 97110; 97140; 97161; 97530; G0283

== ENCOUNTER 2024-09-12 09:00 | Outpatient (RCR) | payer MEDICARE, OTHER, SELFPAY ==
--- NOTE | 2024-08-23 08:01 | PCPTNOTE ---
This treatment is being continued from visit number [id number] Please see documentation on both accounts to view progress. Completed interventions, outcomes, and problems have been marked as Inactive to facilitate the copying of the Care plan routine for recurring accounts.
--- NOTE | 2024-09-12 09:56 | PTOPDC ---
Assessment and note entered by Jillian Le, PT Discharge Report Assessment Status Discharge ICD-10 Condition Codes (PT) Cervicalgia M54.2,M54.13 Onset March 29, 2024 Subjective Information neck is better--more mobility and less pain; going to get MRI- have not scheduled yet; want to continue therapy and see what the MRI says do not have follow up appt with surgeon, will make after the MRI; PAIN: range in the past week: 5-8/10; achy, stiff in neck, both sides, R > L have headaches- few times/wk increase pain: more active-yard work, overhead reaching with arms; decrease pain: rest, ice, ibuprofen sleeping: improved past few nights--at best 6 hours of sleep Reported Pain Level Pain Score Self Report Additional Pain Score Comments pain range in the past week 6-7/10; headaches 2x / week; increase pain: lifting weights, more activity; decrease pain: rest, ipuprofen 800mg PRN-- few times/week was able to shovel/push a little snow with some burning in neck and shoulders; also have back pain and tooth pain--infection and to have extraction of 2 teeth soon Assessment PT Clinical Summary Bharath has received a total of 27 PT sessions. Compared to the last reevaluation: pain from 5-8/ 10 to 6-7/10; headaches same about 2x/week; self assessment Neck Index rating from 44% to 30% limitation to activity level; cervical ROM is the same with rotation R and L 40', both increase pain, R > L and side bend R and L both increase pain, to L > R; indep with HEP, pain control and balance of activity/rest. He uses home electrical stim and self massage with theracane. The goals were partially met. Discharge PT services. Plan of Care PT Services Indicated No
== END 2024-09-12 10:49 | disposition home or self-care (01) ==
LOC: ANHPT 09:00
PROVIDERS: PCP Student in an Organized Health Care Education/Training Program
DX: M50.10 Cervical disc disorder with radiculopathy, unspecified cervical region (principal); Z98.1 Arthrodesis status
CPT/HCPCS: 97014; 97110; 97140; 97530; G0283

== ENCOUNTER 2025-06-20 09:00 | Outpatient (RCR) | payer MEDICARE, OTHER, SELFPAY ==
--- NOTE | 2025-05-15 10:08 | OPREHPOC ---
Outpatient Therapy Plan of Care This is a Multidisciplinary Plan of Care that may contain components documented by all disciplines (PT, OT, and ST.) PT Problem 1 PT Problem #1 Knowledge Deficit PT Goal 1 Goal / Goal Update *independent with HEP Target Visit 8 PT Problem 2 PT Problem #2 Pain PT Goal 1 Goal / Goal Update 1* pt report pain at worst of 3/10 in L knee 2* pt report no pain increase on stairs Target Visit 8 PT Problem 3 PT Problem #3 Impaired Strength PT Goal 1 Goal / Goal Update 1*increase strength of L knee to improve stability of knee to 4+/5 2* sit/stand x 10 reps without use of UEs and without pain increase Target Visit 8
--- NOTE | 2025-05-15 10:08 | PTOPEVAL1 ---
Assessment and note entered by Jillian Le, PT Evaluation Information Assessment Status Evaluation ICD-10 Condition Codes (PT) Pain in left knee M25.562 Onset April 12, 2025 Subjective Information walking and weed eating his yard, felt pain and click in L knee; then had swelling in knee; continue to have pain; went to dr; now knee is a little better, but still hurts; no imaging done; meds and order for therapy; knee is feeling better due to resting and elevation due to L lower leg wound. 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; activity: independent with self and home tasks, not working, on medical disability; Reported Pain Level Pain Score Self Report Additional Pain Score Comments pain range in the past week: 2-6/10; lateral- superior patella, sore and hurts; sometime pain at popliteal crease; increase pain: stairs, sit to stand decrease pain: rest, elevation, ice, ibuprofen/ tylenol have tramadol for cut in lower leg; sleeping is OK now, initially had problems have been resting and less activity due to anterior claudio wound/injury; Assessment PT Clinical Summary Bharath has the diagnosis of L knee pain, onset with weed eating his yard. Pain has decreased since onset, with rest, ice and elevation. Also has a wound over anterior claudio that was infected and still have stitches intact. LE functional scale rating of 26% limitation in activity level. He is very motivated and wants to get better. Medical history includes: chronic neck and back pain with multiple surgeries. With the evaluation: he has good ROM of hips and knees; pain with palpation over distal- lateral hamstring and ITB; increase pain with patellar compression; in standing, is able to bear full weight on L LE with walking and single leg standing; Skilled PT services are indicated for modalities to decrease pain, therapeutic exercises to improve stability to knee joint and education for HEP and pain control. Plan of Care Interventions Electrical Stimulation,Hot Pack/Cold Pack,Manual Therapy,Neuro Re-education,Patient/Caregiver Education,Therapeutic Activities,Therapeutic Exercise,Ultrasound,Other Other Interventions taping PT Services Indicated Yes Treatment Frequency and 1-2x/wk for 8 visits Duration These treatments will address the objective and functional deficits as defined above. The patient will be advanced safely and appropriately in order for the patient to progress towards his/her prior level of function. Additional exercises will be introduced and as well as a comprehensive home exercise program upon discharge, if needed, ?to ensure carryover of functional gains achieved in the clinic. This treatment plan has been reviewed and agreement upon by the patient.
--- NOTE | 2025-06-20 09:55 | OPREHPOC ---
Outpatient Therapy Plan of Care This is a Multidisciplinary Plan of Care that may contain components documented by all disciplines (PT, OT, and ST.) PT Problem 1 PT Problem #1 Knowledge Deficit PT Goal 1 Goal / Goal Update *independent with HEP 06-20-25 d/c goal met Target Visit 8 Progress Met PT Problem 2 PT Problem #2 Pain PT Goal 1 Goal / Goal Update 1* pt report pain at worst of 3/10 in L knee 2* pt report no pain increase on stairs 06-20-25 d/c goals not met: pain of 6/10 and stairs increase pain Target Visit 8 Progress Not Met PT Problem 3 PT Problem #3 Impaired Strength PT Goal 1 Goal / Goal Update 1*increase strength of L knee to improve stability of knee to 4+/5 2* sit/stand x 10 reps without use of UEs and without pain increase 06-20-25 d/c goal 1 met: #2- pain increase from 3 to 4/10, increase at about rep 6 Target Visit 8 Progress Partially Met
--- NOTE | 2025-06-20 09:55 | PTOPDC ---
Assessment and note entered by Jillian Le, PT Evaluation Information Assessment Status Discharge ICD-10 Condition Codes (PT) Pain in left knee M25.562 Onset April 12, 2025 Subjective Information knee pain is better, but it comes and goes; therapy has helped some, but knee still hurts; have been busy-- walking, doing outside things- yard work, bow shooting; to have neck surgery Aug 08; after neck surgery, if still having troubles with the knee will see a specialist about it; agree with d/c from therapy; to continue with his exercises. Reported Pain Level Pain Score Self Report Additional Pain Score Comments pain rate in the past week 0-6/10; lateral knee pain, distal ITB increase pain: stairs, squatting, walking/stand/ activity tolerance of 2 hours with pain decrease pain: over the counter meds not using ice--reinforced PRN use 10-15 minutes not using any type of knee brace Assessment PT Clinical Summary Bharath has received a total of 8 PT sessions. With today's assessment: pain range of 0-6/10 at lateral knee and mid to distal ITB; self assessment with LE functional scale rating of 31% limitation in activity level; pain is increased with end range of knee flexion, walking/standing, squatting and more activity; strength of knee and hip 4+/5; education completed for HEP and pain management. The goals were partially met. Discharge PT. He is to continue with the HEP, maintaining his ROM and strength. Plan of Care PT Services Indicated No
== END 2025-06-20 10:52 | disposition home or self-care (01) ==
LOC: ANHPT 09:00
PROVIDERS: PCP Student in an Organized Health Care Education/Training Program; Visit Provider Student in an Organized Health Care Education/Training Program
DX: M25.562 Pain in left knee (principal)
CPT/HCPCS: 97032; 97035; 97110; 97140; 97161; 97530